=== PATIENT | female | born 1950 | race Caucasian/White ===

== ENCOUNTER 2023-06-23 09:32 | Outpatient (OUT) | payer MEDICARE, OTHER, SELFPAY ==
--- NOTE | 2023-06-23 | ECG_ITS ---
The [facility] Test Date: 2023-06-23 Pat Name: DELL PINEDA Department: Room: - Gender: Female Blocklayer: : 1950 Requested By: RUTH LOAZNO Order Number: [id number] Reading MD: CYN HOPKINS Measurements Intervals [place] Rate: 67 P: 62 IA: 166 QRS: 74 QRSD: 94 T: 48 QT: 396 QTc: 421 Interpretive Statements SINUS RHYTHM WITH FREQUENT VENTRICULAR PREMATURE COMPLEXES INCOMPLETE RIGHT BUNDLE BRANCH BLOCK [90+ ms QRS DURATION, TERMINAL R IN V1/V2, 40+ ms S IN I/aVL/V4/V5/V6] No previous ECG available for comparison Electronically Signed On 06-24-2023 7:02:20 EST by CYN HOPKINS
== END 2023-06-23 09:33 | disposition home or self-care (01) ==
LOC: CARD 09:37
PROVIDERS: PCP Family Medicine; Visit Provider Family Medicine
DX: I49.9 Cardiac arrhythmia, unspecified (principal)
CPT/HCPCS: 93005

== ENCOUNTER 2023-06-30 09:32 | Outpatient (OUT) | payer MEDICARE, OTHER, SELFPAY ==
[2023-06-30 09:54] LABS: Basophils Absolute Auto 0.1 10^3/uL (0.0-0.1); Eosinophils Absolute Auto 0.3 10^3/uL (0.0-0.7); Eosinophils Percent Auto 4.6 % (0.9-7.0); Hematocrit 37.8 % (36.0-48.0); Hemoglobin 12.4 g/dL (12.0-16.0); Immature Granulocytes Abs Auto 0.02 10^3/uL (0.00-0.03); Immature Granulocytes Pct Auto 0.3 % (0.0-0.5); Lymphocytes Absolute Auto 0.9 10^3/uL (1.2-3.8); Lymphocytes Percent Auto 14.7 % (20.5-60.0); Mean Corpuscular HGB Conc 32.8 g/dL (29.9-35.2); Mean Corpuscular Volume 88.3 fL (81.0-99.0); Mean Platelet Volume 10.9 fL (9.5-13.5); Monocytes Absolute Auto 0.6 10^3/uL (0.3-0.8); Monocytes Percent Auto 9.3 % (1.7-12.0); Neutrophils Absolute Auto 4.3 10^3/uL (1.4-6.5); Neutrophils Percent Auto 70.1 % (43.0-75.0); Platelet Count 238 10^3/uL (150-450); Red Blood Count 4.28 10^6/uL (4.20-5.40); Red Cell Distribution Width 13.7 % (11.0-15.0); White Blood Count 6.1 10^3/uL (4.0-11.0)
[2023-06-30 11:34] LABS: Anion Gap 10.6; BUN Creatinine Ratio 23.9; Carbon Dioxide 28.5 mmol/L (21.0-32.0); Chloride 101 mmol/L (98-107); Estimated GFR (African America >60 (>=60); Estimated GFR (Non-African Ame >60 (>=60); Glucose 92 mg/dL (74-106); Potassium 4.1 mmol/L (3.5-5.1); Sodium 136 mmol/L (136-145)
[2023-06-30 11:35] LABS: Alanine Aminotransferase 18 U/L (14-59); Albumin Level 3.7 g/dL (3.4-5.0); Alkaline Phosphatase 78 U/L (46-116); Aspartate Amino Transferase 12 U/L (15-37); Bilirubin Total 0.5 mg/dL (0.2-1.0); Chol HDL Ratio 2.9; Cholesterol 194 mg/dL (<=200); Globulin 3.6 g/dL; HDL Cholesterol 67 mg/dL (40-60); Thyroid Stimulating Hormone 1.321 uIU/mL (0.358-3.740); Total Protein 7.3 g/dL (6.4-8.2); Triglycerides 71 mg/dL (<=150); VLDL CHOLESTEROL 14.2 mg/dL
[2023-06-30 12:26] LABS: Free T4 1.32 ng/dL (0.76-1.46)
== END 2023-06-30 09:33 | disposition home or self-care (01) ==
LOC: LAB 09:34
PROVIDERS: PCP Family Medicine; Visit Provider Family Medicine
DX: E03.9 Hypothyroidism, unspecified (principal); I10 Essential (primary) hypertension
CPT/HCPCS: 36415; 80053; 80061; 84439; 84443; 85025

== ENCOUNTER 2024-11-05 12:26 | Outpatient (OUT) | payer MEDICARE, OTHER, SELFPAY ==
[2024-11-05 12:50] LABS: Basophils Absolute Auto 0.1 10^3/uL (0.0-0.1); Basophils Percent Auto 0.6 % (0.2-2.0); Eosinophils Percent Auto 0.2 % (0.9-7.0); Hematocrit 38.1 % (36.0-48.0); Hemoglobin 12.8 g/dL (12.0-16.0); Immature Granulocytes Abs Auto 0.02 10^3/uL (0.00-0.03); Immature Granulocytes Pct Auto 0.2 % (0.0-0.5); Lymphocytes Percent Auto 11.9 % (20.5-60.0); Mean Corpuscular HGB Conc 33.6 g/dL (29.9-35.2); Mean Corpuscular Hemoglobin 29.7 pg (26.7-34.0); Mean Corpuscular Volume 88.4 fL (81.0-99.0); Mean Platelet Volume 11.2 fL (9.5-13.5); Monocytes Absolute Auto 0.5 10^3/uL (0.3-0.8); Neutrophils Absolute Auto 6.6 10^3/uL (1.4-6.5); Neutrophils Percent Auto 81.1 % (43.0-75.0); Platelet Count 231 10^3/uL (150-450); Red Blood Count 4.31 10^6/uL (4.20-5.40); Red Cell Distribution Width 13.2 % (11.0-15.0); White Blood Count 8.1 10^3/uL (4.0-11.0)
--- NOTE | 2024-11-05 12:51 | ECG_ITS ---
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 Measurements Intervals [place] Rate: 82 P: 69 ND: 169 QRS: -8 QRSD: 97 T: 48 QT: 395 QTc: 462 Interpretive Statements SINUS RHYTHM WITH FREQUENT VENTRICULAR PREMATURE COMPLEXES IN A BIGEMINAL PATTERN INDETERMINATE AXIS INCOMPLETE RIGHT BUNDLE BRANCH BLOCK [90+ ms QRS DURATION, TERMINAL R IN V1/V2, 40+ ms S IN I/aVL/V4/V5/V6] ABNORMAL RHYTHM ECG Compared to ECG 06/23/2023 09:59:12 Indeterminate axis now present Electronically Signed On 11-05-2024 20:29:03 EDT by KAREEN CARDONA M.D.
[2024-11-05 13:15] LABS: Anion Gap 12.1; BUN Creatinine Ratio 18.6; Calcium 9.4 mg/dL (8.5-10.1); Carbon Dioxide 27.7 mmol/L (21.0-32.0); Chloride 102 mmol/L (98-107); Estimated GFR (African America >60 (>=60 mL/min/1.73m^2); Estimated GFR (Non-African Ame 56 (>=60 mL/min/1.73m^2); Glucose 105 mg/dL (74-106); Potassium 3.8 mmol/L (3.5-5.1); Sodium 138 mmol/L (136-145)
[2024-11-05 13:30] LABS: Thyroid Stimulating Hormone 3.475 uIU/mL (0.358-3.740)
[2024-11-05 14:06] LABS: Free T4 1.39 ng/dL (0.76-1.46)
== END 2024-11-05 12:27 | disposition home or self-care (01) ==
PROVIDERS: PCP Family Medicine; Visit Provider Family Medicine
DX: R00.1 Bradycardia, unspecified (principal); I10 Essential (primary) hypertension; E07.9 Disorder of thyroid, unspecified
CPT/HCPCS: 36415; 80048; 84439; 84443; 85025; 93005

== ENCOUNTER 2024-11-13 08:10 | Outpatient (OUT) | payer MEDICARE, OTHER, SELFPAY | END 2024-11-13 08:11 | disposition home or self-care (01) | LOC: CARD 08:13 | PROVIDERS: PCP Family Medicine; Visit Provider Family Medicine | DX: R00.1 Bradycardia, unspecified (principal) | CPT/HCPCS: 93242 ==

== ENCOUNTER 2025-03-18 08:21 | Outpatient (OUT) | payer MEDICARE, OTHER, SELFPAY ==
--- OUTSIDE RECORDS SUMMARY | 2025-03-18 08:37 | XMS_ITS | CCD ---
Author Organization [facility] Care Team Providers Care Director Dermatology Name Role Phone Carlos A Ordonez Attending Provider Elham Lozano Primary Care Provider Neno Ivett Unavailable DR ELHAM LOZANO Attending Unavailable BLAKE, DR ELHAM Mansfield Consulting Unavailable DR ELHAM LOZANO Primary Care Unavailable DR ELHAM LOZANO Admitting Unavailable Elham Lozano Unavailable MD Elham Lozano Primary Care Provider MD Elham Lozano Attending Provider ELHAM LOZANO Primary Care Physician [phone] MD Elham Lozano Primary Care Provider MD Elham Lozano Attending Provider Elham Lozano MD Primary Care Provider Americo Santiago MD Attending Provider Elham Lozano MD Primary Care Provider Americo Santiago MD Attending Provider Elham Lozano MD Primary Care Provider Juan Owusu MD Attending Provider ELHAM LOZANO Referring Unavailable ELHAM LOZANO Attending Unavailable ELHAM LOZANO Admitting Unavailable [place]. Attending Unavailable Elham Lozano Primary Care Unavailable Elham Lozano Referring Unavailable [place]. Admitting Unavailable Elham Lozano MD Primary Care Provider Elham Lozano MD Attending Provider [phone] Elham Lozano MD Referring Provider Juan Owusu MD Attending Provider [phone] Tann, Juan Admitting Unavailable Francoise, Juan Attending Unavailable Elham Lozano Primary Care Unavailable Americo Santiago II Attending Unavailinga e Americo Santiago II Admitting Unavailinga e Elham Lozano Primary Care Unavailable Tann, Juan Attending Unavailable Tann, Juan Admitting Unavailable Elham Lozano Primary Care Unavailable Tann, Juan Admitting Unavailable Francoise, Juan Attending Unavailable Elham Lozano Primary Care Unavailable Elham Lozano MD Primary Care Provider Unavailable Unavailable Unavailable Allergies Allergy Classification Reported Allergen(s) Allergy Type Date of Onset Reaction(s) Facility (20 sources) nickel; Translations: [Nickel] Drug Allergy 4 [facility] (3 sources) Latex; Translations: [Latex] Drug allergy [facility] (2 sources) patient allergy list reviewed by nurse or physicia Propensity to adverse reactions 6 Comment:Done Lola Pirindola [facility] Other (2 sources) Allergies Reconciled Propensity to adverse reactions Unknown Lola Pirindola [facility] Other (12 sources) metal Allergy to substance 1 [facility] Comment on above: rash over whole body Medications Current Medications Medication Drug Class(es) Dates Sig (Normalized) Sig (Original) Calcium (2 sources) Phosphate Binder, Calcium Calcium Active fluticasone propionate 0.5 mg/ml topical cream (9 sources) Corticosteroid Start: 11-08-2024 End: 03-11-2025 Fluticasone Propionate 0.05 % cream Active 1 APPLIC TOPICAL Daily as needed March 11, 2025 1:34pm FreeTextSi application Externally Once a day; Note: Source Status: Taking; Refills: 1; Qty: 30 Gram; Provider: Blake Mansfield Complies with drug therapy Fluticasone Prop ionate 0.05 % 1 application Externally Once a day for 14 days Active Fluticasone Prop ionate 0.05 % 1 application Externally Once a day for 14 days Active folic acid 0.8 mg oral tablet (20 sources) Start: 10-16-2020 take 0.8 mg by mouth once daily in the evening Folic Acid 800 mcg Tablet Active 0.8 MG PO Every evening October 16, 2020 12:00am Complies with drug therapy Start: 10-16-2020 take 0.8 mg by mouth once daily in the evening Folic Acid Active 0.8 MG PO Every evening October 16, 2020 12:00am take 1 tablet by adilson th every twenty-four hours Folic Acid 800 MCG 1 tablet Orally Once a day Not-Taking/PRN 24 hr metoprolol succinate 25 mg extended release oral tablet (1 source) beta-Adrenergic Jamilah Start: 03-11-2025 take 2 tablets by mouth once daily at bedtime Metoprolol Succinate 25 mg tablet extended release 24 hr Active 12.5 MG PO Daily at bedtime March 11, 2025 12:00am Complies with drug therapy spironolactone 25 mg oral tablet (1 source) Aldosterone Antagonist Start: 03-11-2025 take 1 tablet by mouth once daily in the morning Spironolactone 25 mg tablet Active 25 MG PO Every morning March 11, 2025 12:00am Complies with drug therapy Vitamin D3-Vitamin K2 (Dosoquin) 5,500-200 unit-mcg tablet (17 sources) Start: 10-16-2020 take 1 tablet by mouth once daily Vitamin D3-Vitamin K2 (Dosoquin) 5,500-200 unit-mcg tablet Active 1 TAB PO Daily October 16, 2020 11:01am Start: 10-16-2020 End: 03-11-2025 take 1 tablet by mouth once daily Vitamin D3-Vitamin K2 (Dosoquin) 5,500-200 unit-mcg tablet Discontinued 1 TAB PO Daily October 16, 2020 12:00am March 11, 2025 1:34pm Start: 10-16-2020 take 1 tablet by adilson th once daily Start: 10-16-2020 take 1 tablet by adilson th once daily Vitamin D3-Vitamin K2 (Dosoquin) 5,500-200 unit-mcg tablet Active 1 TAB PO Daily October 15, 2020 11:00pm Start: 10-16-2020 take 1 tablet by adilson th once daily Vitamin D3-Vitamin K2 (Dosoquin) 5,500-200 unit-mcg tablet Active 1 TAB PO Daily October 16, 2020 12:00am Completed/Discontinued Medications Medication Drug Class(es) Dates Sig (Normalized) Sig (Original) acetaminophen 325 mg / oxyCODONE hydrochloride 5 mg oral tablet (13 sources) Opioid Agonist Start: 11-18-2020 End: 10-27-2023 take 1 tablet by mouth every four to six hours as needed for pain Oxycodone-Acetamin ophen (Percocet) 5-325 mg tablet Discontinued 1 - 2 TAB PO EVERY 4-6 HOURS as needed for pain 40 7 November 18, 2020 October 27, 2023 9:57am amoxicillin 500 mg oral tablet (17 sources) Penicillin-class Antibacterial Start: 03-16-2024 End: 09-20-2024 take 1 tablet by mouth three times daily Amoxicillin 500 mg tablet Discontinued 500 MG PO Three times daily March 16, 2024 12:00am September 20, 2024 3:01pm Start: 02-11-2021 Amoxicillin 50 0 MG take 4 capsule by mouth post dental work Orally Jan, Not-Taking/PRN Start: 02-11-2021 amoxicillin 500 mg / clavulanate 125 mg oral tablet (5 sources) Penicillin-class Antibacterial Start: 12-10-2024 End: 12-24-2024 take 1 tablet by mouth twice daily Amoxicillin-Pot Clavulanate 500-125 mg tablet Discontinued 1 TAB PO Twice daily December 10, 2024 12:00am December 24, 2024 2:57pm aspirin 81 mg delayed release oral tablet (13 sources) Platelet Aggregation Inhibitor, Nonsteroidal Anti-inflammatory Drug Start: 11-18-2020 End: 10-27-2023 take 1 tablet by mouth twice daily Aspirin 81 mg Tablet,Delayed Release (Dr/Ec) Discontinued 81 MG PO Twice daily 0 November 18, 2020 12:00am October 27, 2023 9:57am docusate sodium 100 mg oral capsule (13 sources) Start: 11-18-2020 End: 10-27-2023 take 1 capsule by mouth twice daily Docusate Sodium (Dok) 100 mg Capsule Discontinued 100 MG PO Twice daily 0 November 18, 2020 12:00am October 27, 2023 9:57am Dosoquin 5500-200 UNIT-MCG (7 sources) Dosoquin 5500-20 0 UNIT-MCG as directed Orally Not-Taking/PRN Dosoquin 5500-20 0 UNIT-MCG as directed Orally Not-Taking hydroCHLOROthiazide 25 mg oral tablet (20 sources) Thiazide Diuretic Start: 08-04-2015 End: 03-11-2025 take 1 tablet by mouth once daily in the evening Hydrochlorothiazide 25 mg tablet Discontinued 25 MG PO Every evening October 16, 2020 12:00am July 03, 2024 3:27pm hydrOXYzine pamoate 25 mg oral capsule (13 sources) Antihistamine Start: 11-18-2020 End: 11-12-2024 Hydroxyzine Pamoate (Vistaril) 25 mg capsule Discontinued 25 MG PO every 6 to 8 hours as needed for spasms November 18, 2020 12:00am November 12, 2024 11:01am levothyroxine sodium 0.088 mg oral tablet (20 sources) l-Thyroxine Start: 08-07-2024 End: 11-07-2024 take 1 tablet by mouth once daily in the morning Levothyroxine 88 mcg tablet Discontinued 0 .ROUTE .COMPLEX August 07, 2024 3:33pm November 07, 2024 8:24am TAKE 1 TABLET BY MOUTH ONCE DAILY IN THE MORNING ON AN EMPTY STOMACH Start: 08-07-2024 take 1 tablet by adilson th once daily in the morning Levothyroxine 88 mcg tablet Active 0 .ROUTE .COMPLEX August 07, 2024 3:33pm TAKE 1 TABLET BY MOUTH ONCE DAILY IN THE MORNING ON AN EMPTY STOMACH Start: 08-07-2024 take 1 tablet by adilson th once daily in the morning Levothyroxine 88 mcg tablet Active 0 .ROUTE .COMPLEX August 07, 2024 2:33pm TAKE 1 TABLET BY MOUTH ONCE DAILY IN THE MORNING ON AN EMPTY STOMACH Start: 02-06-2024 End: 11-07-2024 take 1 tablet by mouth once daily in the morning Levothyroxine 88 mcg tablet Discontinued 0 .ROUTE .COMPLEX August 07, 2024 3:33pm November 07, 2024 8:24am TAKE 1 TABLET BY MOUTH ONCE DAILY IN THE MORNING ON AN EMPTY STOMACH Start: 02-18-2023 take 1 tablet by adilson th once daily in the morning Levothyroxine Sodium 88 MCG 1 tablet in the morning on an empty stomach Orally Once a day for 90 days Jan, Active Start: 10-16-2020 End: 02-06-2024 take 1 tablet by mouth once daily in the morning Levothyroxine 88 mcg tablet Discontinued 88 MCG PO Every morning October 16, 2020 12:00am February 06, 2024 9:13am Start: 08-04-2015 take 1 tablet by adilson th once daily levothyroxine 75 mcg (0.075 mg) Tab 75 microgram = 1 tab(s), Oral, Daily, # 60 tab(s), Refills(s) 0, Thyroid Start Date: 08/04/15 Status: Ordered take 1 tablet by adilson th once daily in the morning Levothroid 88 MCG 1 tablet on an empty stomach in the morning Orally Once a day Active lisinopril 40 mg oral tablet (20 sources) Angiotensin Converting Enzyme Inhibitor Start: 02-06-2024 End: 11-12-2024 take 1 tablet by mouth once daily Lisinopril 40 mg tablet Discontinued 0 .ROUTE .COMPLEX November 07, 2024 9:33am November 12, 2024 2:08pm Take 1 tablet by mouth once daily Start: 02-06-2024 take 1 tablet by adilson th once daily Lisinopril Active 0 .ROUTE .COMPLEX February 06, 2024 9:13am Take 1 tablet by mouth once daily Start: 08-04-2015 End: 02-06-2024 take 1 tablet by mouth once daily in the evening Lisinopril 40 mg tablet Discontinued 40 MG PO Every evening October 16, 2020 12:00am February 06, 2024 9:13am meloxicam 15 mg oral tablet (9 sources) Nonsteroidal Anti-inflammatory Drug Start: 09-20-2024 End: 11-12-2024 take 1 tablet by mouth once daily Meloxicam 15 mg tablet Discontinued 15 MG PO daily September 20, 2024 1:00am November 12, 2024 11:01am methylPREDNISolone 4 mg oral tablet (10 sources) Corticosteroid Start: 03-16-2024 End: 09-20-2024 Methylprednisolone 4 mg tablets,dose pack Discontinued 0 PO per package directions March 16, 2024 12:00am September 20, 2024 3:01pm PO PER PKG DIR for 6 days Start: 03-16-2024 Methylpredniso lone Active 0 PO per package directions March 16, 2024 12:00am PO PER PKG DIR for 6 days omeprazole 40 mg delayed release oral capsule (13 sources) Proton Pump Inhibitor Start: 11-08-2024 End: 11-12-2024 take 1 capsule by mouth once daily Omeprazole 40 mg capsule,delayed release(DR/EC) Discontinued 1 CAP PO Daily November 08, 2024 12:00am November 12, 2024 11:01am FreeTextSi capsule 30 minutes before morning meal Orally Once a day; Note: Source Status: Taking; Provider: Blake Lizarraga ( ) take 1 capsule by mouth once juanjo ly Omeprazole 40 MG 1 capsule 30 minutes before morning meal Orally Once a day Active Triamcinolone (18 sources) Corticosteroid Start: 06-05-2020 Kenalog -40 mg May, 40 mg Start: 02-29-2020 Kenalog -40 mg Feb, 40 mg Problems Active Problems Problem Classification Problem Date Documented Date Episodic/Chronic Allergic reactions (6 sources) Contact dermatitis; Translations: [Unspecified contact dermatitis, unspecified cause] Onset: 06-11-2015 Episodic Cardiac dysrhythmias (7 sources) Cardiac arrhythmia; Translations: [Cardiac arrhythmia, unspecified] Onset: 09-27-2018 Chronic Cardiac dysrhythmias (20 sources) Bradycardia; Translations: [Bradycardia, unspecified] Onset: 02-18-2025 11-05-2024 Episodic Esophageal disorders (2 sources) Gastroesophageal reflux disease without esophagitis; Translations: [Gastro-esophageal reflux disease without esophagitis] Chronic Essential hypertension (19 sources) Essential (primary) hypertension; Translations: [Essential hypertension] Onset: 03-11-2022 11-05-2024 Chronic Genitourinary symptoms and ill-defined conditions (2 sources) Dysuria; Translations: [Dysuria] Episodic Immunizations and screening for infectious disease (13 sources) Vaccination given; Translations: [Encounter for immunization] 07-10-2024 Episodic Joint disorders and dislocations; trauma-related (7 sources) Crepitus of right knee joint; Translations: [Other internal derangements of right knee] Chronic Nutritional deficiencies (2 sources) Vitamin D deficiency; Translations: [Vitamin D deficiency, unspecified] Onset: 02-20-2018 Chronic Osteoarthritis (20 sources) Osteoarthritis of left knee joint; Translations: [Unilateral primary osteoarthritis, left knee] Onset: 11-10-2015 Resolved: 05-26-2021 Chronic Other bone disease and musculoskeletal deformities (2 sources) Bone density finding; Translations: [Other specified disorders of bone density and structure, unspecified site] Episodic Other circulatory disease (2 sources) Elevated blood-pressure reading without diagnosis of hypertension; Translations: [Elevated blood-pressure reading, without diagnosis of hypertension] Episodic Other connective tissue disease (7 sources) History of right total knee replacement; Translations: [Presence of right artificial knee joint] Chronic Other connective tissue disease (1 source) Presence of right artificial knee joint Onset: 05-26-2021 Resolved: 05-26-2021 Chronic Other connective tissue disease (13 sources) History of total knee arthroplasty; Translations: [Presence of right artificial knee joint] 11-18-2020 Chronic Other infections; including parasitic (12 sources) History of human papilloma virus infection; Translations: [Personal history of other infectious and parasitic diseases] 10-27-2023 Episodic Other infections; including parasitic (2 sources) Personal history of other infectious and parasitic diseases; Translations: [Personal history of other infectious and parasitic diseases] 10-27-2023 Episodic Other injuries and conditions due to external causes (2 sources) History of fall; Translations: [History of falling] Episodic Other lower respiratory disease (8 sources) Dyspnea; Translations: [Dyspnea, unspecified] 12-24-2024 Episodic Other lower respiratory disease (3 sources) Dyspnea, unspecified; Translations: [Other respiratory abnormalities] Onset: 03-04-2025 12-24-2024 Episodic Other non-traumatic joint disorders (2 sources) Arthralgia of the lower leg; Translations: [Pain in right knee] Episodic Other non-traumatic joint disorders (2 sources) Arthralgia of the ankle and/or foot; Translations: [Pain in right ankle and joints of right foot] Episodic Other nutritional; endocrine; and metabolic disorders (2 sources) Body mass index 25-29 - overweight; Translations: [Body mass index (BMI) 27.0-27.9, adult] Episodic Other screening for suspected conditions (not mental disorders or infectious disease) (16 sources) Encounter for screening for malignant neoplasm of cervix; Translations: [Encounter for screening mammogram for malignant neoplasm of breast] Episodic Other skin disorders (6 sources) Localized swelling of right foot; Translations: [Localized swelling, mass and lump, right lower limb] 11-09-2024 Episodic Other skin disorders (6 sources) Localized swelling, mass and lump, right lower limb; Translations: [Swelling of limb] 11-05-2024 Episodic Other upper respiratory disease (7 sources) Allergic rhinitis; Translations: [Allergic rhinitis, unspecified] 12-11-2024 Chronic Other upper respiratory disease (2 sources) Allergic rhinitis, unspecified; Translations: [Allergic rhinitis, cause unspecified] 12-10-2024 Chronic Other upper respiratory infections (20 sources) Acute maxillary sinusitis; Translations: [Acute recurrent maxillary sinusitis] Onset: 09-27-2018 03-29-2024 Episodic Residual codes; unclassified (2 sources) Family history of malignant neoplasm of gastrointestinal tract; Translations: [Family history of malignant neoplasm of digestive organs] Episodic Residual codes; unclassified (2 sources) Immunization refused ; Translations: [Immunization not carried out because of patient refusal] Episodic Residual codes; unclassified (12 sources) Menopause present; Translations: [Asymptomatic menopausal state] 10-27-2023 Episodic Residual codes; unclassified (2 sources) Asymptomatic menopausal state; Translations: [Symptomatic menopausal or female climacteric states] 10-27-2023 Episodic Residual codes; unclassified (11 sources) Family history of cancer of colon; Translations: [Family history of malignant neoplasm of digestive organs] 10-27-2023 Episodic Residual codes; unclassified (1 source) Family history of malignant neoplasm of digestive organs; Translations: [Family history of malignant neoplasm of gastrointestinal tract] 10-27-2023 Episodic Thyroid disorders (6 sources) Hypothyroidism, unspecified; Translations: [Hypothyroidism] Onset: 03-10-2022 Chronic Thyroid disorders (11 sources) Disorder of thyroid gland; Translations: [Disorder of thyroid, unspecified] 11-05-2024 Episodic Varicose veins of lower extremity (10 sources) Asymptomatic varicose veins of right lower extremity; Translations: [Varicose veins of right ankle] Onset: 11-14-2024 11-12-2024 Episodic Past or Other Problems Problem Classification Problem Date Documented Da te Episodic/Chronic Other non-traumatic joint disorders (10 sources) Pain in left knee; Translations: [Left knee pain] Onset: 09-20-2024 09-18-2024 Episodic Results Test Name Value Interpretation Reference Range Facility STR cardiac stress/regularon 03-05-2025 STR cardiac stress/regular [address] [place] [address] Cardiac Stress Test Signed Patient: Parisa Hendricks MR#: [id number] : 1950 Acct:[id number] Age/Sex: 74 / F ADM Date: 03/04/25 Loc: EL Room: Type: [facility] CLI Attending Dr: Juan Owusu MD Copies to: Jolly Moise MD, [facility] Juan Owusu MD Ordering Provider: Juan Owusu MD Date of Service: 03/04/25 STR/STR cardiac stress/regular: R06.00 - Dyspnea, unspecified ORDERED BY: Dr. Owusu INDICATION: A 74-year-old patient with dyspnea on exertion. RESTING ECG: Resting ECG revealed normal sinus rhythm with a heart rate of 74 beats/min. Resting blood pressure 126/72 mmHg. EXERCISE DATA: The patient was exercised on a Gordy protocol for 5 minutes and 32 seconds achieving maximum heart rate 155 beats/min, which represented 105% of predicted maximum heart rate and a workload of 7 METs. The test ended due to leg fatigue. During exercise, no ischemic EKG changes were noted. The patient had no symptoms of chest pain and no significant cardiac arrhythmias were noted. CONCLUSION: 1. Normal graded exercise tolerance test after completing 5 minutes and 32 seconds on a Gordy protocol achieving 105% of predicted maximum heart rate and a workload of 7 METs. 2. No chest pain, significant cardiac arrhythmias or ischemic ST-segment abnormalities induced by exercise. 3. The patient achieved Sheets treadmill score of 6+, which is somewhat favorable. Transcribed By: SUZIE 03/05/252131 Dictated By: Jolly Moise MD, [facility] 03/05/25 0742 Signed By: 03/11/25 0848 Normal [facility] CT heart calcium score wo 02-18-2025 CT heart calcium score [facility] [address] [address] [address] Scan Report Signed Patient: Parisa Hendricks MR#: [id number] : 1950 Acct:[id number] Age/Sex: 74 / F ADM Date: 02/18/25 Loc: CT Room: Type: [facility] CLI Attending Dr: Juan Owusu MD Copies to: Juan Owusu MD Ordering Provider: Juan Owusu MD Date of Service: 02/18/25 CT/CT heart calcium score wo: R06.00 - Dyspnea, unspecified CT heart calcium score w/o contrast REASON FOR EXAM: Palpitations, bradycardia, history of thyroid cancer and melanoma, hypertension TECHNIQUE: Prospective gated imaging of the heart were obtained for calcium evaluation of the coronary arteries. Agatston score was calculated. The CT exam was performed using one or more the following dose reduction techniques: Automated exposure control, adjustment of the MA and/or Kv according to patient size, or use of the iterative reconstruction technique. COMPARISON:None FINDINGS: LEFT MAIN: 0 LEFT ANTERIOR DESCENDIN CIRCUMFLEX: 0 RIGHT CORONARY ARTERY: 0 TOTAL AGATSTON CALCIUM SCORE: 0 This calcium score places the patient at the 0th percentile. EXTRACARDIAC STRUCTURES: Mediastinal and hilar partially calcified lymph nodes are present. No pericardial effusion. Visualized lungs demonstrate no acute process. There is a 5 mm calcified granuloma in the lingula. Limited images of the upper abdomen demonstrate no acute findings. There is a 1.5 cm hypoattenuating structure in the right hepatic lobe presumably representing a cyst. Calcified granulomas are noted in the spleen. CT/CT heart calcium score wo IMPRESSION: No significant extracardiac CT findings. CALCIUM SCORE INTERPRETATION (0) No identifiable atherosclerotic plaque. Very low cardiovascular disease risk. Less then 5% chance of presence of coronary artery disease. (1-99) RIsk is mildly increased. Treatment recommendation - moderate intensity statin. (100-299) Risk is moderately increased. Treatment recommendation - moderate to high intensity statin plus ASA 81mg. (>300) Risk is moderately to severely increased. Treatment recommendation - high intensity statin plus ASA 81mg. Source: September 2017 - Coronary artery calcium data and reporting system. An expert consensus document of the Society of Cardiovascular Computed Tomography) CALCIUM SCORING OVERVIEW: Coronary calcium is a marker for plaque in a blood vessel or atherosclerosis (hardening of the arteries). The presence and amount of calcium detected in the coronary artery by the CT scan es timates the presence and amount of atherosclerotic plaque. These calcium deposits can appear years before the development of heart disease symptoms such as chest pain and shortness of breath. A calcium score is computed of each of the coronary arteries based upon the volume and density of the calcium deposits. This can be referred to as your calcified plaque burden. It does not correspond directly to the percentage of narrowing in the artery, but does correlate with the severity of the overall coronary atherosclerotic burden. This score is then used to determine the calcium percentile which compares your calcified plaque to that of other asymptomatic men and women of the same age. The calcium score, in combination with the percentile, enables your physician to determine your risk of developing symptomatic coronary artery disease, and to measure the progression of disease as well as the effectiveness of treatment. A score of zero indicates that there is no calcified plaque burden. This implies that there is no significant coronary artery narrowing and very low likelihood of a cardiac event over at least the next 3 years. It does not absolutely rule out the presence of soft, noncalcified plaque or totally eliminate the possibility of a cardiac event. A score greater than zero indicates at least some coronary artery disease. As the score increases, so does the likelihood of a significant coronary narrowing and the likelihood of a coronary event over the next 3 years. Similarly, the likelihood of a coronary event increases with increasing calcium percentiles. Impression dictated by: Jef Duncan M.D. 02/18/2025 3:51 PM Dictation Location: [place] [address] Transcribed By: [facility] 02/18/25 1551 Dictated By: Jef Duncan II, MD 02/18/25 1542 Signed By: 02/18/25 1551 Normal [facility] E[facility] echo transthoracicon ECH echo transthoracic [facility] [place] [address] Echocardiogram Signed Patient: Parisa Hendricks MR#: [id number] : 1950 Acct:[id number] Age/Sex: 74 / F ADM Date: 02/18/25 Loc: [place] Room: Type: [facility] Attending Dr: Juan Owusu MD Ordering Provider: Juan Owusu MD Date of Service: 02/18/25 ECH/ECH echo transthoracic: R06.00 - Dyspnea, unspecified Copies to: MD Juan Restrepo MD BSA: 1.7 m2 BP: 150/88 mmHg HR: 73 Reason For Study: R06.00 - Dyspnea, unspecified History: bradycardia, HTN, family history of CAD Interpretation Summary Ejection Fraction = 55-60%. The left ventricular size and thickness are normal. No regional wall motion abnormalities noted. A variety of Doppler measurements indicate impaired left ventricular relaxation, which is associated with grade I/IV or mild diastolic dysfunction. There is trace tricuspid regurgitation. Trace aortic regurgitation. There is trace mitral regurgitation. There is no comparison study available. Procedure/Quality: A two-dimensional transthoracic echocardiogram with color flow and Doppler was performed. The study was technically good in quality. Left Ventricle: The left ventricular size and thickness are normal. Ejection Fraction = 55-60%. A variety of Doppler measurements indicate impaired left ventricular relaxation, which is associated with grade I/IV or mild diastolic dysfunction. No regional wall motion abnormalities noted. Left Atrium: The left atrium appears normal in size. Right Atrium: The right atrium appears normal in size. Right Ventricle: The right ventricle is normal in size and function. Aortic Valve: The aortic valve is mildly sclerotic. No hemodynamically significant valvular aortic stenosis. Trace aortic regurgitation. Mitral Valve: The mitral valve is normal in structure. No significant mitral valve stenosis. There is trace mitral regurgitation. Tricuspid Valve: The tricuspid valve is normal in structure. There is trace tricuspid regurgitation. Pulmonic Valve: The pulmonic valve is not well visualized. No significant pulmonic regurgitation. Arteries: The aortic root is normal size. Pericardium/Pleura: No pericardial effusion seen. IVC/Hepatic Veins: The inferior vena cava is normal in size, with a normal collapsibility index. Measurements with Normals IVSd: 0.75 cm (0.7-1.1 cm)LVIDd: 5.0 cm (3.7-5.4 cm) LVPWd: 0.81 cm (0.7-1.1 cm)LVIDs: 3.6 cm (2.3-3.6 cm) LA dimension: 4.1 cm (2.3-4.0 cm)Ao root diam: 3.0 cm(2.0-3.6 cm) asc Aorta Diam: 3.1 cm(2.1-3.4cm) Doppler with Normals RVSP(TR): 34.5 mmHg (18-35mmHg) LV V1 max: 109.6 cm/sec (0.7-1.7m/s)MV E max claus: 75.2 cm/sec(0.8-1.3m/s) MV A max claus: 99.9 cm/sec(0.0-0.0m/s) MV E/A: 0.75 (<1.5) MMode/2D Measurements Calculations RVDd: 3.3 cm FS: 28.2 % Ao root area: LVOT diam: 1.9 cm TAPSE: 2.9 cm EDV(Teich): 7.2 cm2 LVOT area: 2.8 cm2 RV S Claus: 120.1 ml 12.1 cm/sec ESV(Teich): 55.0 ml EF(Teich): 54.2 % __ LVLd ap4: 7.2 cm SV(MOD-sp4): LAV(MOD-sp4): LA A2 area: 19.2 cm2 EDV(MOD-sp4): 43.2 ml 49.5 ml 75.0 ml LAV(MOD-sp2): LA A4 area: 19.1 cm2 LVLs ap4: 5.9 cm 48.6 ml LA length (vol): ESV(MOD-sp4): 5.7 cm 31.8 ml LA vol: 54.8 ml EF(MOD-sp4): 57.6 % LA vol index: 32.2 ml/m2 Doppler Measurements Calculations MV dec time: MV V2 max: E/E' lat: 6.6 MV dec slope: 0.22 sec 98.5 cm/sec E/E' med: 9.0 MV max P.9 mmHg 334.9 cm/sec2 MV V2 mean: 57.7 cm/sec MV mean P.5 mmHg MV V2 VTI: 21.6 cm MVA(VTI): 3.4 cm2 __ Ao V2 max: AI max claus: LV V1 max PG: TV max P.0 mmHg 177.2 cm/sec 435.2 cm/sec 4.8 mmHg Ao max PG: AI max P.0 mmHg LV V1 mean P.6 mmHg AI dec slope: 2.5 mmHg Ao mean PG: LV V1 mean: 6.2 mmHg 305.3 cm/sec2 75.9 cm/sec Ao V2 mean: AI P1/2t: 417.4 msec LV V1 VTI: 118.0 cm/sec 26.3 cm Ao V2 VTI: 43.6 cm EMMETT(I,D): 1.7 cm2 EMMETT(V,D): 1.7 cm2 __ TR max claus: 271.5 cm/sec TR max P.5 mmHg RAP systole: 5.0 mmHg Transcribed By: SCV Performed At: 02/18/25 0904 Signed By: Lou Huang MD 02/18/25 1710 [facility] Coding Summaryon 01-09-2025 Coding Summary HTMLBase 64 GjjvblmyFWu1pYe+PGhlY WQ+KT3EUAHvK98aqLQbtF 1sE3VVDMdLRujiOMMBDSn WHmVhmnAjIT9fqVMsAVAt IC8+FN7lFEBbBquxgDPyk 6F9rJV2U72vgw0kWHepiV Y1MVIjKwUsakafg0ijlBc 6IDcuNmluOyBt XSPvsN37QIE5nG21Cy97r IUfhONga4pkyMz3ArNyAV MbOVM7zNmiVZavp1TqTHL qB64ymWLry0H5 UZOuqHmlzTNvFvFesZM1d U1eNOolymqyk7ocdjydZq l2dx08eHSuv3M6kXL7X6D sniU8IFVwsMGs LymfxQGUiF2kdtxir4drf ofrGuZnZZSzPHi7SHd2LV LnuCvcJmPeDM72YKN2OVK hxgYoW1MrPRPn jZcmYrN2o9F1Gw9ZK4LDL sawL0IBBUDUBUmqkCD+PC 57nr35V3CtRsgfQpf1QPQ iAST9tFG4bC6t CILdBTuvj4C1jNC0I9Ttj iModv0ff6nuNEWaXQdcI2 8mlYQcz6T3BBZykMI7SFI omUtaYbNmbX63 Oyc+LPQpnJzps6ZhNgsxi 4jbj5pjsZa3SqmbYHYhkl OzkClqZGB6d9FhBb9jMRR qoKR4uTT6oD7u MjVjRlJ3PApjQ105AcOtm MClQtfdT06eT5PklMF+PH XnDuf7YNRrfWxoYF0rZ3W hZGRpbmctbGVm iEpgFV0sTRZwhotrKOOmv D5oDCBoQ0v0WnUvSqW5FT vjP8VmDEQfjgtyAh85nO6 mSpKxKvW5ISca F2EwrgB4LDXtwXXhDFhvW RM5G08jr6F1SFKcTNYwGO K2rJT5jS0trArjzayxuHV mdDsgdmVydGlj HZfvHFhyN416THVyyAjcB kNvZGluZyBEYXRlOiAgMD YvMTgvMjAyNTwvdGQ+PHR pZAD3lXszTONy yDCjLOpsNz5mmDyqhYoiC U8vODUsyaflBYDooL2zKE SbkJMeePcqZO9dZGDrkpb jk315BcVsDQZ7 LZLgzWNeR4AjcL4dUrJiC KAkUVVnV3OztDFyJEjqX4 57BTvbWnA3XTZwslTrV1Q sLWFsaWduOiB0 m5C1Qu2Qp2CdsovvS7Sxr DXsKaLrTpclSCq6Y9ZzRj wvdHI+DP49TBHrIO12AVl 2FZK5aKfcEDfa CWBbY7IvgY0gPmYlEMGlD GRkOyc+PHRhYmxlIHdpZH RoPScxMDAlJyBzdHlsZT0 nFa3oZHAbPXSi sDutrDVzJhReb3fwIMIyJ VicEY8nzPmrP0LxqZU7ZZ Fpe2m5Fy27J49pE9BeuGX +YGIunZR5jLF7 tY9rEaXlTnQ2UNqvP239F vKbhAWdNcptf4jiu5unbD l1RwC4FTUlrdNyxPwuKQO 3i3MsJo68O46w IHdpZHRoPSIxNSUiIHZhb Uynuy4crC8wZf6+PGNvbC R8iGG4xM2rRcAkJcP1ZKq pV655QrApsBGo Qoelu4sar1fioGa1AqLfE OLgxiNzkCwhTJT7z3QpUt 48J1SbkPclj6YlCja9hi8 1nEDnj1E7fVM5 G1VuINMxmneneOMobWpnG A2sNLWlxhtoNPHrqW3lFJ EuI7a3TpXhBxZ1ZFfmL7P gvuR9FNDitNRa BAZwhPUEnH8olrefs0gtp xjqKnPzBVOkPJv3JMn7TF QatDsmXtRcJLD6CkC4URX 7wKWexT9itJim yvszuP4kMrh+TNS7vFNlr IHTSQ8zCmtuxJE+PHRkIH D0jHslTEijLSEncS1wGUT jX4k4VhOwBtS0 EQixH5JwkvR7ARQhiTAgZ ESdpUFTbY1jhmwwg0oocx jzCbLdOJLbGQv3DKd6FST saWduOiBsZWZ0 ZpX2BIQ0pFUqfW3rqBxjw qbjdB2eEev+QmlydGggRG I0VDn5H4GiSyo5TPLlnVr yCZ8zhKZkMXiz Km4fdEsscGdgUR4zJLJgl bmhx720IvTga1rwFQPlwV IcBHieLFP5W56oy0I7WWT lYDYpPXS7gCR4 dY6zvQjaycanpJEksBanf sVnmDhyCVtmMFliT599YW OtaPnlScQdPAu6G3TaXwo 5FSPmzAdjUW0n zJQhOZjqXh4lvVxtbDwnP D5nRLDmttbcg613LgToj2 hoVKQbxDQzGTmmXSD4Y23 po6B9EAKgIYAe AEK4lYY6bZ3dxHhwvansu GVmdDsgdmVydGljYWwtYW jcZ795XPHsjUmfDbPgxYs 4P8JcMlx5NNDu gDsqGW2npCUoXFpvTs4nm YrrrNyaVN0gSENdbknje9 05ArBjd0cxVZMsoVMcZRj iJVO7S14kz4M5 XPLoJPJjHSX0sMG4mI7fo GlnbjogbGVmdDsgdmVydG vcMHpmVWzbL729XPOxxVj nPlBhdGllbnQg JFwoVSq2I2VaVdnphOU+P O00QMMsDS69aAIsiXHdj7 bglSe2QhGrVMRyYFB9vWq oHEbth9DhTTCp L30muTQqp8M2DQOblXftm LBuHlEeeYL5gF7jWExilv qju6bmcatfNqweh8rckj6 7aJ19Y19oYTcw ZHRoPSIzMCUiIHZhbGlnb s4geE5oPd9+GXLhvEA6mO O0vC9bBMDjZiP0XTbmL68 9InRvcCIvPjxj q9mwi9bztQm2HnZ9KYFdw jFzfFaaBFU2z1TaHi33H8 9sIHdpZHRoPSIyMCUiIHZ moJlkuq9rpG4q Ii8+BYBboCG7dLC2lR2zF tVdGvI6EErmR627DvKnjG WvGxprT67qP9JauSX+PHR xWah6VJHabDnd WF3pnVNoDDnaLy0cSHU4Y eSbJeErZXiaW9QiOTCwpp wdqkxtxFF0TQHrZVMnaS2 9Bt8brOsoDOOe kXAEsQ5qztmno6ddxmgjB uKxTGGqKQo9LYn4XPQsdV jnUoUzNAK1IyF2RMR8gAI pzR3ecIqdyvbk zG1vE2HjTNFepwadYm76v N6cAwIcJrF9GRgjBbg+V0 lMTElBTVMsIFNIQVJPTjw vdGQ+PHRkIHN0 qDtyYEcvZPFnfC7eNALgH 6m9RhRxQzL3SDxdG2PlKP ZubjzlSz85fE9oCxCaBeK 3OXpmL6TgfkS4 EFIclHZdOFggUAM3J08sw 6S4XYBtFIGqDNW6hTE9hO 1hbGlnbjogbGVmdDsgdmV ydGljYWwtYWxp U359QSHvfAiaVqXrRwJ4A hD6TBJ6H3OgReh2WFZpmZ daCV6paYDlYRagPh1hoCh odYakAV8tYKUq mtvkPLOkxJ5uUSKqxTHix GbxIW9vSJYyewagb876Rt XpXBC9ZXPpjSWbI4LtnY8 yOiAjMDAwMDAw L6OwuMXrZYkvY300BJvnL zX2UNTpheRpS8NmJFMenA qvNlW4u5K9Bt98XiXVBYS yczwvdGQ+PHRk YAD0lGkeDKypETBprV7tE DOtF7f6QhXnDyO1EOvvW5 OiYZUwbtjhAk12wP3qXkH wTjG0OVpoS0Xs kiV8XFBqbIHwJHndGLK7C 19fh9D6ILAyNRJrPXN6mD B8uM7apAerkxbeoRCgeGk gdmVydGljYWwt ZFoeR829AAIxrKjtRuTKZ UFMRTwvdGQ+XAKfMGT6cH clVPjgMJYcnT6aAENrA6g 8DeDdNbR6BWmw N1DoUCHbhtneWd63aJ4hI wZnGvN0IQuhQ1DkhmP4VA MvoUAxKNzpIYC7Y93uc0S 5SCJeUITnQBR1 cTP9wT8grKdhnuzhzBTak DsgdmVydGljYWwtYWxpZ2 51JELmhQqdKg6XNF91YX0 2E0BhBtrayJUy bGU+PHRhYmxlIHdpZHRoP LdlQOZwNvRvuZrtYU2kUn 9yZGVyLWNvbGxhcHNlOiB ga0riVNMdVXby XZ3xcTmjT3UswIQ3PPTaq 0i1Cf78X99dA6WaqDA+PG XkvAF5qBE0fH1dUoPpZeG 8KLxsK631BjUr kXNvZuujo2yyz1aubDa2D fEvTKIcsnKywSnmEUY3x2 BqFx01Z01yTTpgSXBwJPD yMCUiIHZhbGln vx5cvM2lDx1+RFGydTI2w GF4lY4tIqJxAmO6VCooL0 29OwZmhHYqVwllU91rC4I vdXA+PHRyPjx0 NMRbeYcsCR1brHTaTCosJ d5lXUI6PuBbDsGxCWzgO6 SjPYPxfxvzymwqbHQ2EYQ vVFNueA19Iw4j kQudCv4rUSQtWIA6TFJov RDmH8UyoX2zSePpSYVxFU UsE1LkoPEyCVtrT748ZSw qXfY7CMLmxhOo D9CtXMVimTroSkR8a0M0J z6MhHwneFDvAJ3dQaMsEC i0F1InGmi3GAYcjOojSP9 dhRNcFWwcEx8u nXbdbNccEK2sSTVdeirdx 462KpWae5nnXRLimSXjTZ jeWCK1O72ho7X5USYfTNG fTCB7iPG3lC6v bGlnbjogbGVmdDsgdmVyd NliWQpzAHobA254OHTsbM izKcOTVlx4D7RqTyt8GHY loRbvDL5umHOr NVngEi4ksYwojAakVE7zB KRdqwnxy275LcDsa8plTL NcyOFvZIpiIZQ4Q47jc3S 1UIWdBLBsKFL9 sQC0lV9yqHfyqcqntAHer DsgdmVydGljYWwtYWxpZ2 57KTTtbFxpFu1VTcl2W0T oIfe7XLKzfLiu UL7gpXGoVVbeJz2avGqkl YqmQN2gTZRftweff925Iq Qzi9ouXBXlePCgSYhqEDJ 8J80gh5M0ZXBs KQAvPOM8uMG4iP1exRcve jogbGVmdDsgdmVydGljYW srNAsnM620TXFrhRpbCsU heWVyOjwvdGQ+ VA21kh15E8AwBtiyLzg3S GNbVAN5mIS3hN7vFZUhLR wgc9N7yAL0X2AscxDuxg5 cg2yoTNJxYEyy Y29 (more content not included)... [facility] Outside Recordson 01-08-2025 Outside Records [id number] .[id number] [facility] Consent Forms - Physicianon 01-01-2025 Consent Forms - Physician [id number] .[id number] [facility] US Venous Insufficiency Bila ton 01-01-2025 US Venous Insufficiency Bilat EXAMINATION: US Venous Insufficiency Bilat HISTORY: Varicose veins of bilateral lower extremities with pain COMPARISON: No relevant comparison available. TECHNIQUE: Duplex imaging of the lower extremity/extremities to assess the deep and superficial venous system for the presence of deep or superficial venous incompetence and to document the location and severity of disease. The study includes evaluation of the great saphenous vein (GSV), anterior accessory saphenous vein (AASV), and small saphenous vein (SSV). Patient scanned in reverse Trendelenburg And standing positions. FINDINGS: RIGHT LOWER EXTREMITY: GSV: Diam (mm) Reflux Time (sec) Saph fem jctn: 7.90 mm 1.30 s Proximal thigh: 6 mm 1 s Mid thigh: 4.30 mm 1 s Distal thigh: 4 mm 1.10 s Prox calf: 3.30 mm Mid calf: 2 mm SSV: Saph pop jctn: 3.40 mm Prox calf: 2.40 mm Mid calf: 1.90 mm AASV: Prox thigh: 3.70 mm Mid thigh: 3 mm Distal thigh: 4 mm 1.10 s Thrombi: No acute or chronic thrombus visualized. Compressibility:Shaniqua l. Flow: No deep vein reflux Perforators: No incompetent perforating veins Tech note: Incompetent varicose veins measuring up to 4.2 mm with one second proximal LEFT LOWER EXTREMITY: GSV: Diam (mm) Reflux Time (sec) Saph fem jctn: 8.40 mm 2.40 s Proximal thigh: 6 mm 0.80 s Mid thigh: 4.20 mm 1 s Distal thigh: 4.90 mm 0.80 s Prox calf: 3.30 mm 0.80 s Mid calf: 1.90 mm SSV: Saph pop jctn: 4.30 mm 0.90 s Prox calf: Mid calf: 3.10 mm AASV: Not present Thrombi: No acute or chronic thrombus visualized. Compressibility:Shaniqua l. Flow: No deep vein reflux Perforators: 3.7 mm with 0.6 seconds of reflux Tech note: Incompetent varicose veins measuring up to 3.7 mm with 1.3 seconds of reflux CONCLUSION: Mild right and toxb-nj-gqpqfpvd left great saphenous vein venous insufficiency with dilatation and saphenofemoral junction reflux Mild right anterior accessory saphenous vein and left small saphenous vein venous insufficiency without dilatation Bilateral incompetent varicose veins Final Dictated by: Rancho Jcaobson MD Dictated DT/TM: 01/01/25 10:21 Signed (Electronic Signature): Rancho Jacobson MD 01/01/25 10:23 a Technologist: [facility] FPG ECG *CARDIOLOGY ONLY*on 12-24-2024 FPG ECG *CARDIOLOGY ONLY* [facility] [place] [address] [place] [address] Electrocardiograph Report Signed Patient: Parisa Hendricks#: [id number] : 1950 Acct:[id number] Age/Sex: 74 / F ADM Date: 12/24/24 Loc: EKGCARDIO Room: Type: [facility] Attending Dr: Juan Owusu MD Ordering Provider: Juan Owusu MD Date of Service: 12/24/2409/18/1442 ECG/FPG ECG *CARDIOLOGY ONLY*: R00.1 - Bradycardia, unspecified Copies to: Test Reason : Blood Pressure : */* mmHG Vent. Rate : 76 BPM Atrial Rate : 76 BPM P-R Int : 172 ms QRS Dur : 86 ms QT Int : 394 ms P-R-T Axes : 49 -60 23 degrees QTcB Int : 443 ms Sinus rhythm with sinus arrhythmia with occasional premature ventricular complexes Left axis deviation Pulmonary disease pattern Abnormal ECG Confirmed by Sergio Loo ([id number]) on 12/26/2024 4:00:37 PM Referred By: Electronically Signed By: Sergio Loo Transcribed By: MUS Signed By Sergio Loo MD 12/26/24 1600 Normal [facility] MA Mamm Screen w/CAD if perf and 3D Bilon 12-18-2024 MA Mamm Screen w/CAD if perf and 3D Jb Exam Date/Time: 12/14/2024 15:24 EDT Reason for Exam: Z12.31 Report IMPRESSION: BIRADS 2 BENIGN FINDINGS, NORMAL INTERVAL FOLLOW-UP Follow-up: 12 MONTH RECALL Category B - There are scattered areas of fibroglandular density. Vascular calcifications: Present. EXAM: MA Mamm Screen w/CAD if perf and 3D Jb DATE: 12/14/2024 3:12 PM CLINICAL HISTORY: Z12.31. COMPARISONS: 11/22/2023, 11/12/2022, and 09/28/2021. TECHNIQUE: Routine full-field digital mammograms and 3D breast tomosynthesis were obtained of both breasts. FINDINGS: There are no developing densities, suspicious microcalcifications, or areas of architectural distortion identified on the current study. No significant changes are identified from the prior studies, given differences in technique and positioning. Stable asymmetries. Dense Breast: No. CAD analysis was performed and used in the interpretation. Board Certified Radiologists. Accredited by the ACR and FDA. MAMMOGRAPHY IS VERY IMPORTANT TO YOUR HEALTH. THE CURRENT [employer] GUIDELINES RECOMMENDS ANNUAL MAMMOGRAPHY BEGINNING AT AGE 40. THIS FACILITY UTILIZES A REMINDER SYSTEM TO ENSURE ALL PATIENTS RECEIVE REMINDER NOTIFICATIONS AT THE APPROPRIATE TIME BASED ON THE RECOMMENDATIONS OF THIS EXAM. Report Ordering Provider: ELHAM LOZANO FINAL REPORT Dictated: 12/18/2024 3:26 pm Broderick Vanegas MD Signed (Electronic Signature): 12/18/2024 3:26 pm Signed by: Broderick Vanegas MD Transcribed by: PENNY Technologist: ESMER Assessment: BI-RADS Category 2-Benign finding Recommendation: Normal interval follow-up Normal [facility] Patient Handouton 12-12-2024 Patient Handout Cardiovascular Varicose Veins Varicose veins are veins that have become enlarged, bulged, and twisted. They most often appear in the legs. What are the causes? This condition is caused by damage to the valves in the vein. These valves help blood return to your heart. When they are damaged and they stop working properly, blood may flow backward and back up in the veins near the skin, causing the veins to get larger and appear twisted. The condition can result from any issue that causes blood to back up, like , prolonged standing, or obesity. What increases the risk? The following factors may make you more likely to develop this condition: ? Being on your feet a lot. ? Being . ? Being overweight. ? Smoking. ? Having had a previous deep vein thrombosis or having a thrombotic disorder. ? Aging. The risk increases with age. ? Having a condition called Klippel?Trenaunay syndrome. What are the signs or symptoms? Symptoms of this condition include: ? Bulging, twisted, and bluish veins. ? A feeling of heaviness in your legs. This may be worse at the end of the day. ? Leg pain. This may be worse at the end of the day. ? Swelling in the leg. ? Changes in skin color over the veins. Swelling or pain in the legs can limit your activities. Your symptoms may get worse when you sit or stand for long periods of time. How is this diagnosed? This condition may be diagnosed based on: ? Your symptoms, family history, activity levels, and lifestyle. ? A physical exam. You may also have tests, including an ultrasound or X-ray. How is this treated? Treatment for this condition may involve: ? Avoiding sitting or standing in one position for long periods of time. ? Wearing compression stockings. These stockings help to prevent blood clots and reduce swelling in the legs. ? Raising (elevating) the legs when resting. ? Losing weight. ? Exercising regularly. If you have persistent symptoms or want to improve the way your varicose veins look, you may choose to have a procedure to close the varicose veins off or to remove them. Nonsurgical treatments to close off the veins include: ? Sclerotherapy. In this treatment, a solution is injected into a vein to close it off. ? Laser treatment. The vein is heated with a laser to close it off. ? Radiofrequency vein ablation. An electrical current produced by radio waves is used to close off the vein. Surgical treatments to remove the veins include: ? Phlebectomy. In this procedure, the veins are removed through small incisions made over the veins. ? Vein ligation and stripping. In this procedure, incisions are made over the veins. The veins are then removed after being tied (ligated) with stitches (sutures). Follow these instructions at home: Medicines ? Take jmbp-fhk-rcmdyuv and prescription medicines only as told by your health care provider. ? If you were prescribed an antibiotic medicine, use it as told by your health care provider. Do not stop using the antibiotic even if you start to feel better. Activity ? Walk as much as possible. Walking increases blood flow. This helps blood return to the heart and takes pressure off your veins. ? Do not stand or sit in one position for a long period of time. ? Do not sit with your legs crossed. ? Avoid sitting for a long time without moving. Get up to take short walks every 1?2 hours. This is important to improve blood flow and breathing. Ask for help if you feel weak or unsteady. ? Return to your normal activities as told by your health care provider. Ask your health care provider what activities are safe for you. ? Do exercises as told by your health care provider. General instructions ? Follow any diet instructions given to you by your health care provider. ? Elevate your legs at night to above the level of your heart. ? If you get a cut in the skin over the varicose vein and the vein bleeds: ? Lie down with your leg raised. ? Apply firm pressure to the cut with a clean cloth until the bleeding stops. ? Place a bandage (dressing) on the cut. ? Drink enough fluid to keep your urine pale yellow. ? Do not use any products that contain nicotine or tobacco. These products include cigarettes, chewing tobacco, and vaping devices, such as e-cigarettes. If you need help quitting, ask your health care provider. ? Wear compression stockings as told by your health care provider. Do not wear other kinds of tight clothing around your legs, pelvis, or waist. ? Keep all follow-up visits. This is important. Contact a health care provider if: ? The skin around your varicose veins starts to break down. ? You have more pain, redness, tenderness, or hard swelling over a vein. ? You are uncomfortable because of pain. ? You get a cut in the skin over a varicose vein and it will not stop bleeding. Get help right away if: ? You have chest pain. ? You have trouble breathing. ? Y (more content not included)... Normal [facility] Basophils Auto (Bld) [#/Vol] on 11-05-2024 Basophils (Bld) [#/Vol] Automated basophil count 0.0-0.1 [facility] Basophils/100 WBC Auto (Bld) on 11-05-2024 Basophils/100 WBC (Bld) Automated basophil % 0.2-2.0 [facility] Eosinophils/100 WBC Auto (Bl d)on 11-05-2024 Eosinophils/100 WBC (Bld) Automated eosinophil % Low 0.9-7.0 [facility] Erythrocyte distribution wid th Auto (RBC) [Ratio]on 11-05-2024 Erythrocyte distribution width (RBC) [Ratio] Erythrocyte distribution width [Ratio] by Automated count 11.0-15.0 [facility] Estimated glomerular filtrat ion rate (GFR) non- Americanon 11-05-2024 GFR/1.73 sq M.predicted among non-blacks MDRD (S/P/Bld) [Vol rate/Area] Estimated glomerular filtration rate (GFR) non- Low >=60 mL/min/1.73m 2 [facility] Hematocrit Auto (Bld) [Volum e fraction]on 11-05-2024 Hematocrit (Bld) [Volume fraction] Hematocrit [Volume Fraction] of Blood by Automated count 36.0-48.0 [facility] Hemoglobin [Mass/volume] in Bloodon 11-05-2024 Hemoglobin (Bld) [Mass/Vol] Hemoglobin [Mass/volume] in Blood 12.0-16.0 [facility] Laboratory - Chemistry and C hemistry - challengeon 11-05-2024 Calcium [Mass/Vol] 9.4 mg/dL 8.5-10.1 [facility] Chloride [Moles/Vol] 102 mmol/L 98-107 [facility] CO2 [Moles/Vol] 27.7 mmol/L 21.0-32.0 [facility] Creatinine [Mass/Vol] 0.97 mg/dL 0.55-1.02 [facility] Free T4 [Mass/Vol] 1.39 ng/dL 0.76-1.46 [facility] GFR/1.73 sq M.predicted MDRD (S/P/Bld) [Vol rate/Area] mL/min/{1.73_m2} >=60 mL/min/1.73m 2 [facility] Glucose [Mass/Vol] 105 mg/dL 74-106 [facility] Potassium [Moles/Vol] 3.8 mmol/L 3.5-5.1 [facility] Sodium [Moles/Vol] 138 mmol/L 136-145 [facility] TSH Qn 3.475 m[IU]/L 0.358-3.740 [facility] Urea nitrogen [Mass/Vol] 18.0 mg/dL 7.0-18.0 [facility] Urea nitrogen/Creatinine [Mass ratio] 18.6 mg/mg [facility] Laboratory - Hematology and Cell countson 11-05-2024 Immature granulocytes/100 WBC (Bld) 0.2 % 0.0-0.5 [facility] Leukocytes [#/volume] correc kitty for nucleated erythrocytes in Blood by Automated counon 11-05-2024 WBC corrected for nucl RBC Auto (Bld) [#/Vol] Leukocytes [#/volume] corrected for nucleated erythrocytes in Blood by Automated coun 4.0-11.0 [facility] Lymphocytes Auto (Bld) [#/Vo l]on 11-05-2024 Lymphocytes (Bld) [#/Vol] Lymphocytes [#/volume] in Blood by Automated count Low 1.2-3.8 [facility] Lymphocytes/100 WBC Auto (Bl d)on 11-05-2024 Lymphocytes/100 WBC (Bld) Lymphocytes/100 leukocytes in Blood by Automated count Low 20.5-60.0 [facility] MCH Auto (RBC) [Entitic mass ]on 11-05-2024 MCH (RBC) [Entitic mass] MCH [Entitic mass] by Automated count 26.7-34.0 [facility] MCHC Auto (RBC) [Mass/Vol]on 11-05-2024 MCHC (RBC) [Mass/Vol] MCHC [Mass/volume] by Automated count 29.9-35.2 [facility] MCV Auto (RBC) [Entitic vol] on 11-05-2024 MCV (RBC) [Entitic vol] MCV [Entitic volume] by Automated count 81.0-99.0 [facility] Monocytes Auto (Bld) [#/Vol] on 11-05-2024 Monocytes (Bld) [#/Vol] Automated blood monocyte count 0.3-0.8 [facility] Monocytes/100 WBC Auto (Bld) on 11-05-2024 Monocytes/100 WBC (Bld) Automated monocyte % 1.7-12.0 [facility] Neutrophils Auto (Bld) [#/Vo l]on 11-05-2024 Neutrophils (Bld) [#/Vol] Neutrophils [#/volume] in Blood by Automated count High 1.4-6.5 [facility] Neutrophils/100 WBC Auto (Bl d)on 11-05-2024 Neutrophils/100 WBC (Bld) Automated neutrophil % High 43.0-75.0 [facility] No Panel Informationon 11-05 Eosinophils # (Auto) 0.0 10 3/uL 0.0-0.7 [facility] Immature Granulocyte # (Auto) 0.02 10 3/uL 0.00-0.03 [facility] Platelet mean volume Auto (B ld) [Entitic vol]on 11-05-2024 Platelet mean volume (Bld) [Entitic vol] Platelet mean volume [Entitic volume] in Blood by Automated count 9.5-13.5 [facility] Platelets Auto (Bld) [#/Vol] on 11-05-2024 Platelets (Bld) [#/Vol] Platelets [#/volume] in Blood by Automated count 150-450 [facility] RBC Auto (Bld) [#/Vol]on RBC (Bld) [#/Vol] Erythrocytes [#/volume] in Blood by Automated count 4.20-5.40 [facility] Serum or plasma anion gap de terminationon 11-05-2024 Anion gap [Moles/Vol] Serum or plasma anion gap determination [facility] X-ray reportOrdered By: Jef Duncan on 09-20-2024 Study report [facility] [facility] [address] [place] [address] XRay Report Signed Patient: Parisa Hendricks MR#: [id number] : 1950 Acct:[id number] Age/Sex: 73 / F ADM Date: 5 Loc: [facility] [place] Room: Type: [facility] Attending Dr: Americo Santiago II, MD Copies to: Americo Santiago MD~ Ordering Provider: Americo Santiago MD Date of Service: 09/20/24 XR/XR knee LT 4V*: M25.562 - Pain in left knee XR knee LT 4V* 09/20/2024 2:02 PM SIGNS AND SYMPTOMS: Left knee pain PROTOCOL: Frontal, lateral, oblique, and sunrise views of the left knee COMPARISON: 06/05/2020 FINDINGS: There is narrowing of the weightbearing and patella for joint spaces greatest along the medial weightbearing joint space. There is tricompartmental spurring. There is a small joint effusion. No soft tissue swelling. No fracture. 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 Similar to the prior study. There is a small joint effusion. Impression dictated by: Jef Duncan M.D.09/20/2024 2:48 PM Dictation Location: RADIO-PC-24 Transcribed By: EVELIN 09/20/241447 Dictated By: Jef Duncan II, MD 09/20/241446 Signed By: 09/20/241447 [facility] Work Phone: Study report [facility] [address] [place] [address] XRay Report Signed Patient: Parisa Hendricks MR#: [id number] : 1950 Acct:[id number] Age/Sex: 73 / F ADM Date: 5 Loc: [facility] [place] Room: Type: [facility] Attending Dr: Americo Santiago II, MD Copies to: Americo Santiago MD~ Ordering Provider: Americo Santiago MD Date of Service: 09/20/24 XR/XR pelvis 1-2V: M25.562 - Pain in left knee XR pelvis 1-2V 09/20/2024 2:02 PM SIGNS AND SYMPTOMS: Left knee pain PROTOCOL: Frontal radiograph the pelvis COMPARISON: None FINDINGS: The bony ring of the pelvis is intact. Degenerative changes are noted in the lumbar spine and sacral iliac joints. Mild narrowing of the joint spaces of thehips. XR/XR pelvis 1-2V IMPRESSION: No fracture or dislocation. Mild degenerative changes are noted as above. Impression dictated by: Jef Duncan M.D.09/20/2024 2:46 PM Dictation Location: RADIO-PC-24 Transcribed By: EVELIN 09/20/241445 Dictated By: Jef Duncan II, MD 09/20/241445 Signed By: 09/20/241445 [facility] Work Phone: XR knee LT 4V*on 09-20-2024 XR knee LT 4V* [facility] [place] [address] XRay Report Signed Patient: Parisa Hendricks MR#: [id number] : 1950 Acct:[id number] Age/Sex: 73 / F ADM Date: 09/20/24 Loc: [facility] Room: Type: REG CLI Attending Dr: Americo Santiago II, MD Copies to: Americo Santiago MD Ordering Provider: Americo Santiago MD Date of Service: 09/20/24 XR/XR knee LT 4V*: M25.562 - Pain in left knee XR knee LT 4V* 09/20/2024 2:02 PM SIGNS AND SYMPTOMS: Left knee pain PROTOCOL: Frontal, lateral, oblique, and sunrise views of the left knee COMPARISON: 06/05/2020 FINDINGS: There is narrowing of the weightbearing and patella for joint spaces greatest along the medial weightbearing joint space. There is tricompartmental spurring. There is a small joint effusion. No soft tissue swelling. No fracture. 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 Similar to the prior study. There is a small joint effusion. Impression dictated by: Jef Duncan M.D.09/20/2024 2:48 PM Dictation Location: [place] [address] Transcribed By: [facility] 09/20/24 1448 Dictated By: Jef Duncan II, MD 09/20/24 1447 Signed By: 09/20/24 1448 Normal [facility] XR pelvis 1-2Von 09-20-2024 XR pelvis 1-2V [facility] [address] [place] [address] XRay Report Signed Patient: Parisa Hendricks MR#: [id number] : 1950 Acct:[id number] Age/Sex: 73 / F ADM Date: 09/20/24 Loc: [facility] Room: Type: REG CLI Attending Dr: Americo Santiago II, MD Copies to: Americo Santiago MD Ordering Provider: Americo Santiago MD Date of Service: 09/20/24 XR/XR pelvis 1-2V: M25.562 - Pain in left knee XR pelvis 1-2V 09/20/2024 2:02 PM SIGNS AND SYMPTOMS: Left knee pain PROTOCOL: Frontal radiograph the pelvis COMPARISON: None FINDINGS: The bony ring of the pelvis is intact. Degenerative changes are noted in the lumbar spine and sacral iliac joints. Mild narrowing of the joint spaces of the hips. XR/XR pelvis 1-2V IMPRESSION: No fracture or dislocation. Mild degenerative changes are noted as above. Impression dictated by: Jef Duncan M.D.09/20/2024 2:46 PM Dictation Location: [place] [address] Transcribed By: EVELIN 09/20/24 1446 Dictated By: Jef Duncan II, MD 09/20/24 1446 Signed By: 09/20/24 1446 Normal [facility] CBC AUTO DIFFon 03-10-2022 BASO # 0.0 103/ul Normal 0.0-0.1 [facility] Comment on above: Performed By: #### C BC #### [facility] [address] [place] [address] Dr. Di Alonso Basophils/100 WBC (Bld) 0.6 % Normal 0.2-2.0 [facility] Comment on above: Performed By: #### C BC #### [facility] [address] [place] [address] [address] Di Alonso EO # 0.1 103/ul Normal 0.0-0.7 [facility] Comment on above: Performed By: #### C BC #### [facility] [address] [address] [address] Di Alonso Eosinophils/100 WBC (Bld) 2.4 % Normal 0.9-7.0 [facility] Comment on above: Performed By: #### C BC #### [facility] [address] [address] [address] Di Alonso Erythrocyte distribution width (RBC) [Ratio] 13.6 % Normal 11.0-15.0 [facility] Comment on above: Performed By: #### C BC #### [facility] [address] [place] [address] Dr. Di Alonso Hematocrit (Bld) [Volume fraction] 36.7 % Normal 36.0-48.0 [facility] Comment on above: Performed By: #### C BC #### [facility] [address] [place] [address] Dr. Di Alonso Hemoglobin (Bld) [Mass/Vol] 12.2 g/dL Normal 12.0-16.0 [facility] Comment on above: Performed By: #### C BC #### [facility] [address] [place] [address] Dr. Di Alonso IG # 0.01 10e3/ul Normal 0.00-0.03 [facility] Comment on above: Performed By: #### C BC #### [facility] [address] [place] [address] Dr. Di Alonso IG % 0.2 % Normal 0.0-0.5 [facility] Comment on above: Performed By: #### C BC #### [facility] [address] [place] [address] Dr. Di Alonso LYMPH # 1.0 103/ul Critically low 1.2-3.8 [facility] Comment on above: Performed By: #### C BC #### [facility] [address] [place] [address] Dr. Di Alonso Lymphocytes/100 WBC (Bld) 19.0 % Critically low 20.5-60.0 [facility] Comment on above: Performed By: #### C BC #### [facility] [address] [place] [address] Dr. Di Alonso MANUAL DIFF REQ NO Normal [facility] Comment on above: Performed By: #### C BC #### [facility] [address] [place] [address] Dr. Di Alonso MCH (RBC) [Entitic mass] 28.9 pg Normal 26.7-34.0 [facility] Comment on above: Performed By: #### C BC #### [facility] [address] [place] [address] Dr. Di Alonso MCHC (RBC) [Mass/Vol] 33.2 g/dL Normal 29.9-35.2 [facility] Comment on above: Performed By: #### C BC #### [facility] [address] [address] [address] Di Alonso MCV (RBC) [Entitic vol] 87.0 fL Normal 81.0-99.0 [facility] Comment on above: Performed By: #### C BC #### [facility] [address] [address] [address] Di Alonso MONO # 0.5 103/ul Normal 0.3-0.8 [facility] Comment on above: Performed By: #### C BC #### [facility] [address] [place] [address] Dr. Di Alonso Monocytes/100 WBC (Bld) 8.7 % Normal 1.7-12.0 [facility] Comment on above: Performed By: #### C BC #### [facility] [address] [place] [address] Dr. Di Alonso NEUT # 3.8 103/ul Normal 1.4-6.5 [facility] Comment on above: Performed By: #### C BC #### [facility] [address] [place] [address] Dr. Di Alonso Neutrophils/100 WBC (Bld) 69.1 % Normal 43.0-75.0 [facility] Comment on above: Performed By: #### C BC #### [facility] [address] [place] [address] Dr. Di Alonso Platelet mean volume (Bld) [Entitic vol] 10.6 fL Normal 9.5-13.5 [facility] Comment on above: Performed By: #### C BC #### [facility] [address] [place] [address] Dr. Di Alonso PLT 229 103/ul Normal 150-450 [facility] Comment on above: Performed By: #### C BC #### [facility] [address] [place] [address] Dr. Di Alonso RBC 4.22 106/ul Normal 4.20-5.40 [facility] Comment on above: Performed By: #### C BC #### [facility] [address] [place], [place] [address] Dr. Di Alonso WBC 5.4 103/ul Normal 4.0-11.0 [facility] Comment on above: Performed By: #### C BC #### [facility] [address] [place] [address] Dr. Di Alonso FREE T4on 03-10-2022 Free T4 [Mass/Vol] 1.29 ng/dL Normal 0.76-1.[address] [facility] Comment on above: Performed By: #### F T4 #### [facility] [address] [place] [address] Dr. Di Alonso LIPID PROFILEon 03-10-2022 CHOL-HDL RATIO NORM SEE BELOW Normal [facility] Comment on above: Result Comment: 3.3 - 4.4 LOW RISK 4.4 - 7.1 AVERAGE RISK 7.1 - 11.0 MODERATE RISK >11.0 HIGH RISK Performed By: #### B MP, LIPID, TSH #### [facility] [address] [place] [address] Dr. Di Alonso Cholesterol [Mass/Vol] 181 mg/dL Normal <=200 [facility] Comment on above: Performed By: #### B MP, LIPID, TSH #### [facility] [address] [place] [address] Dr. Di Alonso Cholesterol in HDL [Mass/Vol] 65 mg/dL Critically high 40-60 [facility] Comment on above: Performed By: #### B MP, LIPID, TSH #### [facility] [address] [place] [address] Dr. Di Alonso Cholesterol in LDL [Mass/Vol] 103.6 mg/dL Normal [facility] Comment on above: Performed By: #### B MP, LIPID, TSH #### [facility] [address] [place] [address] Dr. Di Alonso Cholesterol.total/Ch olesterol in HDL [Mass ratio] 2.8 {ratio} Normal [facility] Comment on above: Performed By: #### B MP, LIPID, TSH #### [facility] [address] [place] [address] Dr. Di Alonso HDL NORMAL > or = 60 mg/dl - LO W CARDIOVASCULAR RISK <40 mg/dl - HIGH CARDIOVASCULAR RISK Normal [facility] Comment on above: Performed By: #### B MP, LIPID, TSH #### [facility] [address] [address] [address] Di Alonso LDL CALC NORMAL SEE BELOW Normal [facility] Comment on above: Result Comment: <100 mg/dl OPTIMAL 100 - 129 mg/dl NEAR OR ABOVE OPTIMAL 130 - 159 mg/dl BORDERLINE HIGH 160 - 189 mg/dl HIGH >190 mg/dl VERY HIGH Performed By: #### B MP, LIPID, TSH #### [facility] [address] [address] [address] Di Alonso Triglyceride [Mass/Vol] 62 mg/dL Normal <=150 [facility] Comment on above: Performed By: #### B MP, LIPID, TSH #### [facility] [address] [address] [address] Di Alonso VLDL CALC 12.4 mg/dL Normal [facility] Comment on above: Performed By: #### B MP, LIPID, TSH #### [facility] [address] [address] [address] Di Alonso PROF CHEM 8 (BAS METB)on Anion gap [Moles/Vol] 13.5 mmol/L Normal [facility] Comment on above: Performed By: #### B MP, LIPID, TSH #### [facility] [address] [address] [address] Di Alonso Calcium [Mass/Vol] 8.9 mg/dL Normal 8.5-10.[address] [facility] Comment on above: Performed By: #### B MP, LIPID, TSH #### [facility] [address] [address] [address] Di Alonso Chloride [Moles/Vol] 100 mmol/L Normal 98-107 [facility] Comment on above: Performed By: #### B MP, LIPID, TSH #### [facility] [address] [address] [address] Di Alonso CO2 [Moles/Vol] 28.2 mmol/L Normal 21.0-32.0 [facility] Comment on above: Performed By: #### B MP, LIPID, TSH #### [facility] [address] [address] [address] Di Alonso Creatinine [Mass/Vol] 0.83 mg/dL Normal 0.55-1.02 [facility] Comment on above: Performed By: #### B MP, LIPID, TSH #### [facility] [address] [address] [address] Di Alonso EGFR-AF SOMALI >60 Normal >=60 [facility] Comment on above: Performed By: #### B MP, LIPID, TSH #### [facility] [address] [address] [address] Di Alonso EGFR-NON AF SOMALI >60 Normal >=60 [facility] Comment on above: Performed By: #### B MP, LIPID, TSH #### [facility] [address] [address] [address] Di Alonso Glucose [Mass/Vol] 91 mg/dL Normal 74-[address] [facility] Comment on above: Performed By: #### B MP, LIPID, TSH #### [facility] [address] [address] [address] Di Alonso Potassium [Moles/Vol] 3.7 mmol/L Normal 3.5-5.1 [facility] Comment on above: Performed By: #### B MP, LIPID, TSH #### [facility] [address] [address] [address] Di Alonso Sodium [Moles/Vol] 138 mmol/L Normal 136-145 [facility] Comment on above: Performed By: #### B MP, LIPID, TSH #### [facility] [address] [place] [address] Dr. Di Alonso Urea nitrogen [Mass/Vol] 23.0 mg/dL Critically high 7.0-18.0 [facility] Comment on above: Performed By: #### B MP, LIPID, TSH #### [facility] [address] [place] [address] Dr. Di Alonso Urea nitrogen/Creatinine [Mass ratio] 27.7 mg/mg Normal [facility] Comment on above: Performed By: #### B MP, LIPID, TSH #### [facility] [address] [place], [place] [address] Dr. Di Alonso TSHon 03-10-2022 TSH 3.108 uIU/mL Normal 0.358-3.740 [facility] Comment on above: Performed By: #### B MP, LIPID, TSH #### [facility] [address] [place], [place] [address] Dr. Di Alonso COVID-19 Positive/Negativeon 10-30-2020 COVID-19 Positive/Negative Positive Negative [facility] Comment on above: Critical valueresult calledat 1552 on 10/30/20Reference: NegativeTesting for SARS-CoV-2 by RT-PCRThis test was developed and its performance characteristics determined by [employer]) and validated at the [facility]. This test has not been FDA cleared or approved. This test has been authorized by FDA under an Emergency Use Authorization (EUA). This test has been validated in accordance with the FDA's Guidance Document (Policy for Diagnostics Testing in Laboratories Certified to Perform High Complexity Testing under CLIA prior to Emergency Use Authorization for Coronavirus Disease-2019 during the Public Health Emergency) issued on October 25, 2019. This test is only authorized for the duration of time the declaration that circumstances exist justifying the authorization of the emergency use of in vitro diagnostic tests for detection of SARS-CoV-2 virus and/or diagnosis of COVID-19 infection under section 564(b)(1) of the Act, 21 U.S.C. 360bbb-3(b)(1), unless the authorization is terminated or revoked sooner. Otheron 10-30-2020 Coronavirus 2019 PCR Interp N/A [facility] Automated basophil %on 10-16 Basophils/100 WBC (Bld) 0.8 % [facility] Automated basophil counton 0 10-16-2020 Basophils (Bld) [#/Vol] 0.0 10*3/uL 0.0-0.2 [facility] Automated blood lymphocyte c ount (number/volume)on 10-16-2020 Lymphocytes (Bld) [#/Vol] 0.7 10*3/uL 1.00-4.8 [facility] Automated blood lymphocyte c ount as percentage of total leukocyteson 10-16-2020 Lymphocytes/100 WBC (Bld) 12.6 % [facility] Automated blood monocyte cou nton 10-16-2020 Monocytes (Bld) [#/Vol] 0.5 10*3/uL 0.0-0.8 [facility] Automated blood platelet cou nt (count/volume)on 10-16-2020 Platelets (Bld) [#/Vol] 244 10*3/uL 150-450 [facility] Automated blood platelet debra n volume measurementon 10-16-2020 Platelet mean volume (Bld) [Entitic vol] 9.5 fL 6.3-10.7 [facility] Automated eosinophil %on Eosinophils/100 WBC (Bld) 0.9 % [facility] Automated eosinophil counton 10-16-2020 Eosinophils (Bld) [#/Vol] 0.1 10*3/uL 0.0-0.45 [facility] Automated erythrocyte distri bution width ratioon 10-16-2020 Erythrocyte distribution width (RBC) [Ratio] 13.5 % 11.9-15.3 [facility] Automated erythrocyte mean c orpuscular hemoglobin (mass per erythrocyte)on 10-16-2020 MCH (RBC) [Entitic mass] 29.4 pg 24.7-34.3 [facility] Automated erythrocyte mean c orpuscular hemoglobin concentration measurement (mass/volon 10-16-2020 MCHC (RBC) [Mass/Vol] 34.3 g/dL 32.0-35.0 [facility] Automated erythrocyte mean c orpuscular volumeon 10-16-2020 MCV (RBC) [Entitic vol] 85.8 fL 80-100 [facility] Automated erythrocytes count in urine sediment (number/area)on 10-16-2020 RBC Auto (Urine sed) [#/Area] 3-4 [HPF] [facility] Automated leukocytes count i n urine sediment (number/area)on 10-16-2020 WBC Auto (Urine sed) [#/Area] 10-19 [HPF] [facility] Automated monocyte %on 10-16 Monocytes/100 WBC (Bld) 8.3 % [facility] Automated neutrophil %on Neutrophils/100 WBC (Bld) 77.4 % [facility] Automated urine color determ inationon 10-16-2020 Color (U) Dark yellow Yellow [facility] Blood erythrocytes automated count (number/volume)on 10-16-2020 RBC (Bld) [#/Vol] 4.36 10*6/uL 3.60-5.00 [facility] Blood hemoglobin measurement (mass/volume)on 10-16-2020 Hemoglobin (Bld) [Mass/Vol] 12.8 g/dL 11.8-15.4 [facility] Blood leukocytes automated c ount (number/volume)on 10-16-2020 WBC (Bld) [#/Vol] 5.9 10*3/uL 3.8-11.6 [facility] Blood neutrophil count by au tomated method (number/volume)on 10-16-2020 Neutrophils (Bld) [#/Vol] 4.5 10*3/uL 1.8-7.7 [facility] Estimated glomerular filtrat ion rate (GFR) non- Americanon 10-16-2020 GFR/1.73 sq M predicted among non-blacks MDRD (S/P/Bld) [Vol rate/Area] > 60 mL/Min [facility] Hematocrit [Volume Fraction] of Blood by Automated counton 10-16-2020 Hematocrit (Bld) [Volume fraction] 37.4 % 34.0-46.4 [facility] Otheron 10-16-2020 GFR/1.73 sq M.predicted MDRD (S/P/Bld) [Vol rate/Area] > 60 mL/Min [facility] Comment on above: GFR estimated refere nce range: According to KDOQI guidelines, <60 ml/min/1.73m2 is sufficient to diagnose a patient with chronic kidney disease. Nucleated RBC/100 WBC (Bld) [Ratio] 0.1 % 0-0.5 [facility] Creatinine Clearance (Chem N/A [facility] Serum or plasma calcium evelyn urement (mass/volume)on 10-16-2020 Calcium [Mass/Vol] 9.3 mg/dL 8.2-10.2 [facility] Serum or plasma chloride debra surement (moles/volume)on 10-16-2020 Chloride [Moles/Vol] 102 mmol/L 95-114 [facility] Serum or plasma creatinine m easurement with calculation of estimated glomerular filtron 10-16-2020 Creatinine [Mass/Vol] 0.89 mg/dL 0.44-1.03 [facility] Serum or plasma glucose evelyn urement (mass/volume)on 10-16-2020 Glucose [Mass/Vol] 101 mg/dL 70-100 [facility] Comment on above: ADA recommended refe rence rangeRandom Glucose Reference Range is dependent on time and content of last meal. Glucose of more than 200 mg/dL in a nonstressed, ambulatory subject supports the diagnosis of Diabetes Mellitus. Serum or plasma potassium me asurement (moles/volume)on 10-16-2020 Potassium [Moles/Vol] 3.8 mmol/L 3.5-5.1 [facility] Serum or plasma sodium measu rement (moles/volume)on 10-16-2020 Sodium [Moles/Vol] 139 mmol/L 136-146 [facility] Serum or plasma total carbon dioxide measurement (moles/volume)on 10-16-2020 CO2 [Moles/Vol] 27.0 mmol/L 22.0-30.0 [facility] Serum or plasma urea nitroge n measurement (mass/volume)on 10-16-2020 Urea nitrogen [Mass/Vol] 25 mg/dL 9-23 [facility] Specific gravity of Urine by Automated test stripon 10-16-2020 Specific gravity (U) [Rel density] 1.024 1.001-1.030 [facility] Squamous epithelial cells de tection in urine sediment by light microscopyon 10-16-2020 Epithelial cells.squamous LM Ql (Urine sed) 3-4 [HPF] [facility] Urinalysison 10-16-2020 Hyaline casts LM Ql (Urine sed) 0-8 [LPF] [facility] Urine bacteria detection by automated methodon 10-16-2020 Bacteria Auto Ql (U) None seen None Seen [facility] Urine clarity by refractomet ry automatedon 10-16-2020 Clarity Refractometry automated (U) Cloudy Clear [facility] Urine culture routineon 09-23 Bacteria identified Cx Nom (U) 2 Days [facility] Urine glucose measurement by automated test strip (mass/volume)on 10-16-2020 Glucose Auto test strip (U) [Mass/Vol] Normal mg/dL Normal [facility] Urine hemoglobin detection b y automated test stripon 10-16-2020 Hemoglobin Auto test strip Ql (U) Negative Negative [facility] Urine ketones measurement by automated test strip (mass/volume)on 10-16-2020 Ketones (U) [Mass/Vol] Trace Negative [facility] Urine leukocyte esterase det ection by automated test stripon 10-16-2020 Leukocyte esterase Auto test strip Ql (U) 3+ Negative [facility] Urine nitrite detection by t est stripon 10-16-2020 Nitrite Ql (U) Negative Negative [facility] Urine pH measurement by auto mated test stripon 10-16-2020 pH (U) 5.0 [pH] 5.0-9.0 [facility] Urine protein measurement by automated test strip (mass/volume)on 10-16-2020 Protein (U) [Mass/Vol] Negative Negative [facility] Urine total bilirubin detect ion by test stripon 10-16-2020 Bilirubin Ql (U) Negative Negative [facility] Urine urobilinogen measureme nt by automated test strip (mass/volume)on 10-16-2020 Urobilinogen (U) [Mass/Vol] Normal mg/dL Normal [facility] Vital Signs Date Time Vital Sign Value Performing Clinician Facility 03-11-2025 13:38-0400 Body height 160.02 cm Elham Lozano MD Work Phone: [facility] [facility] 03-11-2025 13:38-0400 Body mass index (BMI) [Ratio] 26.4 kg/m2 Elham Loznao MD Work Phone: [facility] 03-11-2025 13:38-0400 Body weight 67.58 kg Elham Lozano MD Work Phone: [facility] 03-11-2025 13:38-0400 Diastolic blood pressure 70 mm[Hg] Elham Lozano MD Work Phone: [facility] 03-11-2025 13:38-0400 Heart rate 70 /min Elham Lozano MD Work Phone: [facility] 03-11-2025 13:38-0400 Respiratory rate 18 /min Elham Lozano MD Work Phone: [facility] 03-11-2025 13:38-0400 SaO2% (BldA) [Mass fraction] 99 % Elham Lozano MD Work Phone: [facility] 03-11-2025 13:38-0400 Systolic blood pressure 122 mm[Hg] Elham Lozano MD Work Phone: [facility] 12-24-2024 15:05-0400 Body height 160.02 cm Elham Lozano MD Work Phone: [facility] 12-24-2024 15:05-0400 Body mass index (BMI) [Ratio] 26.5 kg/m2 Elham Lozano MD Work Phone: [facility] 12-24-2024 15:05-0400 Body weight 68.03 kg Elham Lozano MD Work Phone: [facility] 12-24-2024 15:05-0400 Diastolic blood pressure 80 mm[Hg] Elham Lozano MD Work Phone: [facility] 12-24-2024 15:05-0400 Heart rate 88 /min Elham Lozano MD Work Phone: [facility] 12-24-2024 15:05-0400 Respiratory rate 18 /min Elham Lozano MD Work Phone: [facility] 12-24-2024 15:05-0400 SaO2% (BldA) [Mass fraction] 97 % Elham Lozano MD Work Phone: [facility] 12-24-2024 15:05-0400 Systolic blood pressure 134 mm[Hg] Elham Lozano MD Work Phone: [facility] 12-10-2024 13:52-0400 Body height 160.02 cm Elham Lozano MD Work Phone: [facility] 12-10-2024 13:52-0400 Body mass index (BMI) [Ratio] 26.7 kg/m2 Elham Lozano MD Work Phone: [facility] 12-10-2024 13:52-0400 Body temperature 98.2 [degF] Elham Lozano MD Work Phone: [facility] 12-10-2024 13:52-0400 Body weight 68.57 kg Elham Lozano MD Work Phone: [facility] 12-10-2024 13:52-0400 Diastolic blood pressure 89 mm[Hg] Elham Lozano MD Work Phone: [facility] 12-10-2024 13:52-0400 Heart rate 78 /min Elham Lozano MD Work Phone: [facility] 12-10-2024 13:52-0400 Respiratory rate 12 /min Elham Lozano MD Work Phone: [facility] 12-10-2024 13:52-0400 SaO2% (BldA) [Mass fraction] 97 % Elham Lozano MD Work Phone: [facility] 12-10-2024 13:52-0400 Systolic blood pressure 138 mm[Hg] Elham Lozano MD Work Phone: [facility] 11-12-2024 10:57-0400 Body height 160.02 cm Elham Lozano MD Work Phone: [facility] 11-12-2024 10:57-0400 Body mass index (BMI) [Ratio] 27.1 kg/m2 Elham Lozano MD Work Phone: [facility] 11-12-2024 10:57-0400 Body weight 69.45 kg Elham Lozano MD Work Phone: [facility] 11-12-2024 10:57-0400 Diastolic blood pressure 75 mm[Hg] Elham Lozano MD Work Phone: [facility] 11-12-2024 10:57-0400 Heart rate 43 /min Elham Lozano MD Work Phone: [facility] 11-12-2024 10:57-0400 Respiratory rate 12 /min Elham Lozano MD Work Phone: [facility] 11-12-2024 10:57-0400 SaO2% (BldA) [Mass fraction] 99 % Elham Lozano MD Work Phone: [facility] 11-12-2024 10:57-0400 Systolic blood pressure 134 mm[Hg] Elham Lozano MD Work Phone: [facility] 11-05-2024 11:41-0400 Body height 160.02 cm Elham Lozano MD Work Phone: [facility] 11-05-2024 11:41-0400 Body mass index (BMI) [Ratio] 26.9 kg/m2 Elham Lozano MD Work Phone: [facility] 11-05-2024 11:41-0400 Body weight 68.94 kg Elham Lozano MD Work Phone: [facility] 11-05-2024 11:41-0400 Diastolic blood pressure 77 mm[Hg] Elham Lozano MD Work Phone: [facility] 11-05-2024 11:41-0400 Heart rate 46 /min Elham Lozano MD Work Phone: [facility] 11-05-2024 11:41-0400 Systolic blood pressure 146 mm[Hg] Elham Lozano MD Work Phone: [facility] 09-20-2024 13:59-0500 Body height 160.02 cm Elham Lozano MD Work Phone: [facility] 09-20-2024 13:59-0500 Body mass index (BMI) [Ratio] 27.3 kg/m2 Elham Lozano MD Work Phone: [facility] 09-20-2024 13:59-0500 Body weight 69.85 kg Elham Lozano MD Work Phone: [facility] 03-16-2024 12:02-0400 Body height 154.94 cm [facility] 03-16-2024 12:02-0400 Body mass index (BMI) [Ratio] 29 kg/m2 [facility] 03-16-2024 12:02-0400 Body temperature 97.8 [degF] [facility] 03-16-2024 12:02-0400 Body weight 69.85 kg [facility] 03-16-2024 12:02-0400 Diastolic blood pressure 79 mm[Hg] [facility] 03-16-2024 12:02-0400 Heart rate 65 /min [facility] 03-16-2024 12:02-0400 Systolic blood pressure 144 mm[Hg] [facility] 10-27-2023 09:52-0400 Body height 156.21 cm [facility] 10-27-2023 09:52-0400 Body mass index (BMI) [Ratio] 28.8 kg/m2 [facility] 10-27-2023 09:52-0400 Body weight 70.36 kg [facility] 10-27-2023 09:52-0400 Diastolic blood pressure 77 mm[Hg] [facility] 10-27-2023 09:52-0400 Heart rate 76 /min [facility] 10-27-2023 09:52-0400 Systolic blood pressure 147 mm[Hg] [facility] 06-29-2023 09:00-0500 Body height 156.21 cm Elham Lozano Other [email or web address] Other 06-29-2023 09:00-0500 Body mass index (BMI) [Ratio] 28.81 kg/m2 Elham Lozano Other [email or web address] Other 06-29-2023 09:00-0500 Body weight 70.31 kg Elham Lozano Other [email or web address] Other 06-29-2023 09:00-0500 Diastolic blood pressure 76 mm[Hg] Elham Lozano Other [email or web address] Other 06-29-2023 09:00-0500 Systolic blood pressure 126 mm[Hg] Elham Lozano Other [email or web address] Other 06-23-2023 09:00-0500 Body height 156.21 cm Elham Lozano Other [email or web address] Other 06-23-2023 09:00-0500 Body mass index (BMI) [Ratio] 29.07 kg/m2 Elham Lozano Other [email or web address] Other 06-23-2023 09:00-0500 Body weight 70.94 kg Elham Lozano Other [email or web address] Other 06-23-2023 09:00-0500 Diastolic blood pressure 82 mm[Hg] Elham Lozano Other [email or web address] Other 06-23-2023 09:00-0500 Systolic blood pressure 144 mm[Hg] Elham Lozano Other [email or web address] Other 10-25-2022 15:30-0400 Body height 156.21 cm Elham Lozano Other [email or web address] Other 10-25-2022 15:30-0400 Body mass index (BMI) [Ratio] 28.81 kg/m2 Elham Lozano Other [email or web address] Other 10-25-2022 15:30-0400 Body weight 70.31 kg Elham Lozano Other [email or web address] Other 10-25-2022 15:30-0400 Diastolic blood pressure 78 mm[Hg] Elham Lozano Other [email or web address] Other 10-25-2022 15:30-0400 SaO2% (BldA) [Mass fraction] 99 % Elham Lozano Other [email or web address] Other 10-25-2022 15:30-0400 Systolic blood pressure 112 mm[Hg] Elham Lozano Other [email or web address] Other 05-26-2021 12:00-0400 Body height 162.56 cm Ivett Lazcano Other [email or web address] Other 05-26-2021 12:00-0400 Body mass index (BMI) [Ratio] 25.74 kg/m2 Ivett Lazcano Other [email or web address] Other 05-26-2021 12:00-0400 Body weight 68.04 kg Ivett Lazcano Other [employer] Other 05-26-2021 12:00-0400 Respiratory rate 18 /min Ivett Lazcano Other [email or web address] Other 05-26-2021 12:00-0400 SaO2% (BldA) [Mass fraction] 98 % Ivett Lazcano Other [email or web address] Other Encounters Encounter Date Encounter Type Care Provider Facility Start: 03-11-2025 End: 03-11-2025 ambulatory Elham Lozano MD Work Phone: [facility] Work Phone: Start: 03-11-2025 End: 03-11-2025 Patient encounter procedure Juan Amaya MD -[facility] Work Phone: Start: 03-04-2025 End: 03-04-2025 Patient encounter procedure Juan Amaya MD -Electrodiagnostics Work Phone: Start: 03-04-2025 End: 03-04-2025 ambulatory Elham Lozano MD Work Phone: [facility] Work Phone: Start: 02-18-2025 End: 02-18-2025 Patient encounter procedure Juan Amaya MD -CT Scan [facility] [place] Work Phone: Start: 02-18-2025 End: 02-18-2025 ambulatory Elham Lozano MD Work Phone: [facility] Work Phone: Start: 01-01-2025 End: 01-01-2025 ambulatory Rancho Jacobson Facility:[facility] Start: 12-24-2024 End: 12-24-2024 ambulatory Elham Lozano MD Work Phone: [facility] Work Phone: Start: 12-24-2024 End: 12-24-2024 Patient encounter procedure Elham Lozano MD Work Phone: [facility] Work Phone: Start: 12-14-2024 End: 12-14-2024 ambulatory ELHAM LOZANO Facility:[facility] Start: 12-10-2024 End: 12-10-2024 Patient encounter procedure Elham Lozano MD Work Phone: [facility] Work Phone: Start: 11-12-2024 End: 11-12-2024 ambulatory Elham Lozano MD Work Phone: [facility] Work Phone: Start: 11-12-2024 End: 11-12-2024 Patient encounter procedure Elham Lozano MD Work Phone: [facility] Work Phone: Start: 11-05-2024 End: 11-05-2024 ambulatory Elham Lozano MD Work Phone: [facility] Work Phone: Start: 11-05-2024 End: 11-05-2024 Patient encounter procedure Elham Lozano MD Work Phone: [facility] Work Phone: Start: 09-20-2024 End: 09-20-2024 ambulatory Elham Lozaon MD Work Phone: [facility] Work Phone: Start: 09-20-2024 End: 09-20-2024 Patient encounter procedure Elham Lozano MD Work Phone: [facility] Work Phone: Start: 09-20-2024 End: 09-20-2024 Patient encounter procedure Elham Lozano MD Work Phone: [facility] Start: 09-20-2024 End: 09-20-2024 ambulatory Elham Loznao MD Work Phone: [facility] Work Phone: Start: 07-10-2024 End: 07-10-2024 Patient encounter procedure Elham Lozano MD Work Phone: [facility] Work Phone: Start: 03-16-2024 End: 03-16-2024 ambulatory [facility] Work Phone: Start: 03-16-2024 End: 03-16-2024 Patient encounter procedure [facility] Work Phone: Start: 11-22-2023 End: 11-22-2023 Patient encounter procedure ELHAM LOZANO [facility] Start: 10-27-2023 End: 10-27-2023 Departed Referred MD Elham Lozano Work Phone: [facility] [place] Work Phone: Start: 10-27-2023 End: 10-27-2023 ambulatory MD Elham Lozano Work Phone: [facility] Work Phone: Start: 10-27-2023 End: 10-27-2023 Patient encounter procedure [facility] Work Phone: Start: 06-29-2023 End: 06-29-2023 ambulatory Elham Lozano Other [email or web address] Other Start: 06-29-2023 Office outpatient vi sit 15 minutes Elham Lozano [facility] Start: 06-23-2023 End: 06-23-2023 ambulatory Elham Lozano Other [email or web address] Other Start: 06-23-2023 Office outpatient vi sit 15 minutes Elham Lozano [facility] Start: 04-13-2023 End: 04-13-2023 ambulatory Elham Lozano Other [email or web address] Other Start: 04-13-2023 Telephone encounter Elham Lozano [facility] Start: 02-18-2023 End: 02-18-2023 ambulatory Elham Lozano Other [email or web address] Other Start: 02-18-2023 Telephone encounter Elham Lozano [facility] Start: 11-12-2022 End: 11-12-2022 Patient encounter procedure ELHAM LOZANO [facility] Start: 10-27-2022 End: 10-27-2022 ambulatory Elham Lozano Other [email or web address] Other Start: 10-27-2022 Telephone encounter Elham Lozano [facility] Start: 10-25-2022 End: 10-25-2022 Departed Referred MD Elham Lozano Work Phone: [facility] [place] Work Phone: Start: 10-25-2022 End: 10-25-2022 ambulatory MD Elham Lozano Work Phone: [email or web address] Other Start: 10-25-2022 Periodic preventive med est patient 65yrs& older Elham Lozano [facility] Start: 07-12-2022 Adult health examination Elham Lozano Other [email or web address] Other Start: 07-12-2022 Pre-procedure evaluation check Elham Lozano Other [email or web address] Other Start: 03-10-2022 End: 03-11-[address] ELHAM LOZANO Facility: Start: 05-26-2021 End: 05-26-2021 ambulatory Ivett Lazcano Other [email or web address] Other Start: 05-26-2021 Office outpatient vi sit 15 minutes Ivett Lazcano [facility] Start: 10-30-2020 End: 10-30-2020 Patient encounter procedure Carlos A Ordonez -Pre-Surgical Testing Start: 10-22-2020 End: 10-22-2020 Discharged Recurring Carlos A Ordonez -Physical Therapy [facility] [place] Start: 10-22-2020 End: 10-22-2020 Patient encounter procedure Carlos A Ordonez -[facility] Start: 10-16-2020 End: 10-16-2020 Patient encounter procedure Carlos A Ordonez -Pre-Surgical Testing Procedures Date Procedure Procedure Detail Performing Clinician Start: 02-18-[address] Elham lewis MD Work Phone: Start: 09-20-2024 Plain radiography of pelvis Elham Lozano MD Work Phone: Start: 09-20-2024 X-ray of left knee, four views Elham Lozano MD Work Phone: Start: 10-22-2020 Plain X-ray of right femur Carlos A Ordonez Start: 10-16-2020 Bacteria identified Cx Nom (U) Carlos A Ordonez Start: 10-16-2020 Urine culture Carlos A armstrong Depression screening Elham Lozano Other Plan of Treatment Date Care Activity Detail Author Start: 12-24-2024 [facility] Start: 11-12-2024 Patient referral [facility] Work Phone: Start: 10-27-2023 [facility] Start: 10-25-2022 [facility] Cardiovascular stress testing [facility] CT Heart [facility] DXA Skeletal system. axial Views for bone density [facility] EKG [address] [facility] Holter monitor study [facility] Human papilloma viru s 16+18+31+33+35+39+45+51+52+56+58+ 59+66+68 DNA [Presence] in Cervix by Probe with signal amplification [facility] Human papilloma viru s 16+18+31+33+35+39+45+51+52+56+58+ 59+66+68 DNA [Presence] in Cervix by Probe with signal amplification [facility] Magnesium [Mass/volu me] in Red Blood Cells [facility] MG Breast - bilateral Screening [facility] Patient referral [facility] Work Phone: US Heart Tr[facility]hor[facility] Immunizations Immunization Date Immunization Notes Care Provider Fa cili 07-10-2024 influenza, high dose seasonal, preservative-free Elham Lozano MD Work Phone: [facility] 06-29-2023 influenza virus vaccine, unspecified formulation [facility] 06-29-2023 influenza, high dose seasonal, preservative-free Elham Lozano Other [facility] [employer] Other 07-09-2022 COVID-19 Pfizer (Pediatric) Elham Lozano Other [facility] 06-30-2022 influenza virus vaccine, split virus (incl. purified surface antigen) Elham Lozano Other [email or web address] Other 06-30-2022 influenza virus vaccine, unspecified formulation [facility] 06-25-2021 influenza virus vaccine, split virus (incl. purified surface antigen) Elham Lozano Other [email or web address] Other 06-25-2021 influenza virus vaccine, unspecified formulation [facility] 05-30-2021 COVID-19 Vaccine Pfi zer - Documentation Purposes Only Elham Lozano Other [facility] 10-22-2020 COVID-19 mRNA Comirnaty (Pfizer) MD Elham Lozano Work Phone: [facility] 10-01-2020 COVID-19 mRNA Comirnatem (Pfizer) MD Elham Lozano Work Phone: [facility] 05-16-2020 influenza virus vaccine, split virus (incl. purified surface antigen) Ehlam Lozano Other [email or web address] Other 05-16-2020 influenza virus vaccine, unspecified formulation [facility] Payers Date Payer Category Payer Medicare [id number] 1958 Private Health Insurance [id number] 1950 Unknown [id number] 1950 Unknown [id number] 1950 Unknown [id number] Private Health Insurance [id number] Self-pay Self Pay [id number] Unknown [id number] Social History Date Type Detail Facility Start: 10-16-2020 End: 03-11-2025 Tobacco smoking status NHIS Never smoked tobacco (finding) [facility] Start: 1950 Sex Assigned At Female F [facility] Sex Assigned At [facility] Tobacco smoking status No Smokin g Status Entered [facility] Start: 09-20-2024 End: 12-25-2024 Sex Female (finding) [facility] Medical Equipment Procedure Code Equipment Code Equipment Origin al Text Equipment Identifier Dates Arthroplasty, knee, total, minimally invasive Orthopaedic cement, non-medicated [id number] FDA Start: 11-17-2020 Arthroplasty, knee, total, minimally invasive Orthopaedic cement, non-medicated [id number] FDA Start: 11-17-2020 Arthroplasty, knee, total, minimally invasive Polyethylene patella prosthesis [id number] FDA Start: 11-17-2020 Arthroplasty, knee, total, minimally invasive Tibial insert [id number] FDA Start: 11-17-2020 Arthroplasty, knee, total, minimally invasive Uncoated knee tibia prosthesis, metallic [id number] FDA Start: 11-17-2020 Arthroplasty, knee, total, minimally invasive Uncoated knee femur prosthesis, metallic ()[id number] FDA Start: 11-17-2020 Goals Date Patient Goal Desired Activity /State Clinical Notes 11-17-2020 to 02-18-2025 Note Date & Type Note Facility 02-18-2025 Radiology Diagnostic study note [facility] [place] [address] [place] [address] CT Scan Report Signed Patient: Parisa Hendricks MR#: [id number] [id number] : 1950 Acct:[id number] Age/Sex: 74 / F ADM Date: 5 Loc: CT Room: Type: [facility] Attending Dr: Juan Owusu MD Copies to: Juan Owusu MD~ Ordering Provider: Juan Owusu MD Date of Service: 02/18/25 CT/CT heart calcium score wo: R06.00 - Dyspnea, unspecified CT heart calcium score w/o contrast REASON FOR EXAM: Palpitations, bradycardia, history of thyroid cancer and melanoma, hypertension TECHNIQUE: Prospective gated imaging of the heart were obtained for calcium evaluation of the coronary arteries. Agatston score was calculated. The CT exam was performed using one or more the following dose reduction techniques: Automated exposure control, adjustment of the MA and/or Kv according to patient size, or use of the iterative reconstruction technique. COMPARISON:None FINDINGS: LEFT MAIN: 0 LEFT ANTERIOR DESCENDIN CIRCUMFLEX: 0 RIGHT CORONARY ARTERY: 0 TOTAL AGATSTON CALCIUM SCORE: 0 [address] score [address] the patient at the 0th percentile. EXTRACARDIAC STRUCTURES: Mediastinal and hilar partially calcified lymph nodes are present. No pericardial effusion. Visualized lungs demonstrate no acute process. There is a 5 mm calcified granuloma in the lingula. Limited images ofthe upper abdomen demonstrate no acute findings. There is a 1.5 cm hypoattenuating structure in the right hepatic lobe presumably representing a cyst. Calcified granulomas are noted in the spleen. CT/CT heart calcium score wo IMPRESSION: No significant extracardiac CT findings. CALCIUM SCORE INTERPRETATION (0) No identifiable atherosclerotic plaque. Very low cardiovascular disease risk. Less then 5% chance of presence of coronary artery disease. (1-99) RIsk is mildly increased. Treatment recommendation - moderate intensitystatin. (100-299) Risk is moderately increased. Treatment recommendation - moderate tohigh intensity statin plus ASA 81mg. (>300) Risk is moderately to severely increased. Treatment recommendation - high intensity statin plus ASA 81mg. Source: September 2017 - Coronary artery calcium data and reporting system. An expert consensus document of the Society of Cardiovascular Computed Tomography) CALCIUM SCORING OVERVIEW: Coronary calcium is a marker for plaque in a blood vessel or atherosclerosis (hardening of the arteries). The presence and amount of calcium detected in thecoronary artery by the CT scan estimates the presence and amount of atherosclerotic plaque. These calcium deposits can appear years before the development of heart disease symptoms such as chest pain and shortness of breath. A calcium score is computed of each of the coronary arteries based upon the volume and density of the calcium deposits. This can be referred to as your calcified plaque burden. It does not correspond directly to the percentage of narrowing in the artery, but does correlate with the severity of the overall coronary atherosclerotic burden. This score is then used to determine the calcium percentile which compares your calcified plaque to that of other asymptomatic men and women of the same age. The calcium score, in combination with the percentile, enables your physician todetermine your risk of developing symptomatic coronary artery disease, and to measure the progression of disease as well as the effectiveness of treatment. A score of zero indicates that there is no calcified plaque burden. This implies that there is no significant coronary artery narrowing and very low likelihood of a cardiac event over at least the next 3 years. It does not absolutely rule out the presence of soft, noncalcified plaque or totally eliminate the possibility of a cardiac event. A score greater than zero indicates at least some coronary artery disease. As the score increases, so does the likelihood of a significant coronary narrowing and the likelihood of a coronary event over the next 3 years. Similarly, the likelihood of a coronary event increases with increasing calcium percentiles. Impression dictated by: Jef Duncan M.D. 02/18/2025 3:51 PM Dictation Location: [place] [address] Transcribed By: EVELIN 02/18/25 891 Dictated By: Jef Duncan II, MD 02/18/25 1542 Signed By: 02/18/25 1551 [facility] Work Phone: 12-24-2024 Evaluation note Diagnosis Onset Date Resolution Bradycardia acute December 24 2:36pm Dyspnea acute December 24, 2024 2:36pm Hypertension acute December 24 2:36pm Palpitations acute December 24 2:36pm [facility] Work Phone: 1(551) 860-326605-19-2025 Evaluation note* Diagnosis Onset Date Resolution Status Admit Date Bradycardia acute December 10 1:49pm Rhinitis, allergic acute December 102024 1:49pm Sinusitis, acute maxillary acute December 10, 2024 1:49pm Bradycardia acute December 24 2:36pm Dyspnea acute December 24, 2024 2:36pm Hypertension acute December 24 2:36pm Palpitations acute December 24 2:36pm [facility] Work Phone: 1(917) 585-973404-14-2025 Evaluation note* Diagnosis Onset Date Resolution Status Admit Date Bradycardia acute November 05, 2 025 11:36am Hypertension acute November 05, 2024 11:36am Thyroid disease acute October 11:36am Localized swelling of right foot inactive November 05, 2024 11:36am Bradycardia acute November 12, 025 10:52am Medicare annual wellness vis it, subsequent acute November 12, 2024 10:52am Varicose veins of right ankle acute November 12, 2024 10:52am Localized swelling of right foot inactive November 12, 2024 10:52am Bradycardia acute December 10 1:49pm Rhinitis, allergic acute December 102024 1:49pm Sinusitis, acute maxillary acute December 10, 2024 1:49pm Bradycardia acute December 24 2:36pm Dyspnea acute December 24, 2024 2:36pm Hypertension acute December 24 2:36pm Palpitations acute December 24 2:36pm [facility] Work Phone: 1(304) 848-770902-27-2025 Evaluation note* Diagnosis Onset Date Resolution Status Admit Date Primary osteoarthritis of le ft knee acute September 20, 2 025 1:24pm Bradycardia acute November 05, 2 025 11:36am Hypertension acute November 05, 2024 11:36am Thyroid disease acute October 11:36am [facility] Work Phone: 1(191) 221-714802-27-2025 Evaluation note* Diagnosis Onset Date Resolution Status Admit Date Primary osteoarthritis of le ft knee acute September 20 1:24pm Bradycardia acute November 05 11:36am Hypertension acute November 05, 2024 11:36am Localized swelling of right foot acute November 05, 2024 11:36am Thyroid disease acute October 11:36am Bradycardia acute November 12 10:52am Localized swelling of right foot acute November 12, 2024 10:52am Varicose veins of right ankle acute November 12, 2024 10:52am [facility] Work Phone: 1(674) 670-379612-17-2024 Evaluation note* Diagnosis Onset Date Resolution Status Admit Date Encounter for immunization acute July 10, 2024 11:25am Primary osteoarthritis of le ft knee acute September 20 1:24pm [facility] Work Phone: 1(522) 208-337912-06-2023 Evaluation note* Encounter Date Diagnosis Assessment Notes Treatment Notes Treatment Clinical Notes Jun, 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 She will monitor for symptoms. Denies chest pain or issues. Declines rx or referral to cardio at this time. Jun, Acute contact dermatitis (ICD-10 - L25.9) Improved since previous treatment at 06/23 OV. [email or web address] Other 11-30-2023 Evaluation note* Encounter Date Diagnosis Assessment Notes Treatment Notes Treatment Clinical Notes May, Acute contact dermatitis (ICD-10 - L25.9) No new soaps or detergents. Steroid cream to help with itching and possible reaction to certain types of clothing discussed. May, Irregular heartbeat (ICD-10 - I49.9) Pt agrees to complete EKG today to r/o a fib. [email or web address] Other 04-03-2023 Evaluation note* Encounter Date Diagnosis Assessment Notes Treatment Notes Treatment Clinical Notes Oct, Screening for cervical cancer (ICD-10 - Z12.4) Pap test completed. Oct, Encounter for screening mammogram for malignant neoplasm of breast (ICD-10 - Z12.31) Pt will continue mammograms at [facility]. [email or web address] Other 04-26-2021 History general Narrative - Reported* Type Description Date Medical History thyroid disease Medical History hypertension Surgical History c-sections three Surgical History melanoma excision 2007 Surgical History thyroidectomy 2008 Surgical History right TKA 11/17/20 Hospitalization History see above [facility] Other Evaluation + Plan note No data available for this section [facility] Other Evaluation noteNo assessment information available [facility] Work Phone: Evaluation noteNo InformationNort [employer] Other Evaluation note* Diagnosis Onset Date Resolution Status History of human papilloma virus acute Medicare annual wellness visit, subsequent acute Menopause acute Screening mammogram for breast cancer acute [facility] Work Phone: Evaluation note* Diagnosis Onset Date Resolution Status Family history of colon cancer acute History of human papilloma virus acute Medicare annual wellness visit, subsequent acute Menopause acute Screening mammogram for breast cancer acute [facility] Work Phone: History general Narrative - ReportedNoNew [email or web address] Other Hospital Discharge instructions No data available for this section [facility] Dis[facility] instructionsAmbulatory Orders* Referral to Vascular Surgery Time Frame: 11/12/24, Location: None Selected [facility] Work Phone: Progress note No data available for this section [facility] (narrative)No reason for referral information availablePaul[facility] Work Phone: Advance Directives Advance Directive Response Recorded Date/ Time Advance Directives No May 2:45pm Advance Directive Response Recorded Date/ Time Advance Directives No May 1:45pm Chief Complaint and Reason for Visit Chief Complaint Right Knee Pain Chief Complaint Right Knee Pain pre op R TKA Chief Complaint Right Knee Pain M17.11 pre op R TKA Right Knee Pain Chief Complaint wellness / PAP Reason for Visit History of human pap illoma virus Medicare annual wellness visit, subsequent Menopause Screening mammogram for breast cancer Chief Complaint wellness / PAP E12.4 Reason for Visit Family history of co miriam cancer History of human papilloma virus Medicare annual wellness visit, subsequent Menopause Screening mammogram for breast cancer Chief Complaint fatigue, sore throat , covid - Chief Complaint Admit Date flu shot July 10, 2024 11:25am M25.562 - Pain in left knee August 8:25am NEW LT KNEE PAIN NX September 20, 2024 1:24pm Reason for Visit Admit Date Encounter for immunization June 11:25am Primary osteoarthritis of left knee [facility] 2024 1:24pm Chief Complaint Admit Date M25.562 - Pain in left knee August 8:25am NEW LT KNEE PAIN NX September 20, 2024 1:24pm Swollen Lump on Foot November 05, 2024 11 :36am Reason for Visit Admit Date Primary osteoarthritis of left knee [facility] 2024 1:24pm Bradycardia November 05, 2024 11: 36am Hypertension November 05, 2024 11: 36am Thyroid disease November 05, 2024 11: 36am Chief Complaint Admit Date M25.562 - Pain in left knee August 8:25am NEW LT KNEE PAIN NX September 20, 2024 1:24pm Swollen Lump on Foot November 05, 2024 11 :36am wellness November 12, 2024 10: 52am Reason for Visit Admit Date Primary osteoarthritis of left knee [facility] 2024 1:24pm Bradycardia November 05, 2024 11: 36am Hypertension November 05, 2024 11: 36am Localized swelling of right foot October 232024 11:36am Thyroid disease November 05, 2024 11: 36am Bradycardia November 12, 2024 10: 52am Localized swelling of right foot October 242024 10:52am Varicose veins of right ankle October 10:52am Chief Complaint Admit Date Swollen Lump on Foot November 05, 2024 11 :36am wellness November 12, 2024 10: 52am cold symptoms 1x week December 10, 2024 1:4 9pm Bradycardia, unspecified December 24, 2024 2:36pm Reason for Visit Admit Date Bradycardia November 05, 2024 11: 36am Hypertension November 05, 2024 11: 36am Thyroid disease November 05, 2024 11: 36am Localized swelling of right foot October 232024 11:36am Bradycardia November 12, 2024 10: 52am Medicare annual wellness visit, lisa nt November 12, 2024 10:52am Varicose veins of right ankle October 10:52am Localized swelling of right foot October 242024 10:52am Bradycardia December 10, 2024 1:49p m Rhinitis, allergic December 10, 2024 1:49p m Sinusitis, acute maxillary December 10 1:49pm Bradycardia December 24, 2024 2:36p m Dyspnea December 24, 2024 2:36p m Hypertension December 24, 2024 2:36p m Palpitations December 24, 2024 2:36p m Chief Complaint Admit Date cold symptoms 1x week December 10, 2024 1:4 9pm Bradycardia, unspecified December 24, 2024 2:36pm [email or web address] December 24, 2024 2:43p m [email or web address] February 18, 2025 8:37 am Reason for Visit Admit Date Bradycardia December 10, 2024 1:49p m Rhinitis, allergic December 10, 2024 1:49p m Sinusitis, acute maxillary December 10 1:49pm Bradycardia December 24, 2024 2:36p m Dyspnea December 24, 2024 2:36p m Hypertension December 24, 2024 2:36p m Palpitations December 24, 2024 2:36p m Chief Complaint Admit Date cold symptoms 1x week December 10, 2024 1:4 9pm Bradycardia, unspecified December 24, 2024 2:36pm R00.1 December 24, 2024 2:43p m [email or web address] February 18, 2025 8:37 am [email or web address] March 04, 2025 12 :33pm Chief Complaint Admit Date Bradycardia, unspecified December 24, 2024 2:36pm R00.1 December 24, 2024 2:43p m [email or web address] February 18, 2025 8:37 am [email or web address] March 04, 2025 12 :33pm 6 week f/u March 11, 2025 1: 30pm Reason for Visit Admit Date Bradycardia December 24, 2024 2:36p m Dyspnea December 24, 2024 2:36p m Hypertension December 24, 2024 2:36p m Palpitations December 24, 2024 2:36p m Assessments No Assessments Information AvailableNo Assessments Information AvailableNo Assessments Information AvailableNo Assessments Information Available Summary Purpose Family History Relationship Condition Age at Onset Recorded Date/T manjit father Hypertension Unknown Unknown Diabetes mellitus Unknown Not Specified Unknown Relationship Condition Age at Onset Recorded Date/T manjit father Hypertension Unknown Unknown Diabetes mellitus Unknown mother Unknown Relationship Condition Age at Onset Recorded Date/T manjit father Hypertension Unknown Unknown Diabetes mellitus Unknown Myocardial infarction Unknown mother Unknown Additional Source Comments INFORMATION SOURCE (unrecogn ized section and content) DATE CREATED AUTHOR 03/17/2022 [facility] DATE CREATED AUTHOR AUTHOR'S ORGANIZ ATION 12/26/2024 [facility] DATE CREATED AUTHOR AUTHOR'S ORGANIZ ATION 01/10/2025 [facility] DATE CREATED AUTHOR AUTHOR'S ORGANIZ ATION 03/11/2025 [facility] REASON FOR VISIT (unrecogniz ed section and content) PAP ExammessagerefillsRefill Rash on LegsResults Discussion/FLU Shot Care Teams (unrecognized sec tion and content) Team Status: Active Member Role Status Dates Elham Lozano MD Primary Care Provider Active Team Status: Inactive Member Role Status Dates Elham Lozano MD Primary Care Provider, Attending Jluis lindsay Active Team Status: Inactive Member Role Status Dates Elham Lozano MD Primary Care Provide r, Attending Provider Active Start: October 27, 2023 End: October 27, 2023 Team Status: Inactive Member Role Status Dates Elham Lozano MD Primary Care Provide r, Attending Provider Active Start: March 16, 2024 End: March 16, 2024 Team Status: Inactive Member Role Status Dates Elham Lozano MD Primary Care Provide r, Attending Provider Active Start: July 10, 2024 End: July 10, 2024 Team Status: Active Member Role Status Dates Elham Lozano MD Primary Care Provider Active Start: September 20, 2024 Americo Santiago II, MD Attending Provider Active Start: September 20, 2024 Team Status: Inactive Member Role Status Dates Elham Lozano MD Primary Care Provider Active Start: September 20, 2024 End: September 20, 2024 Americo aSntiago II, MD Attending Provider Active Start: September 20, 2024 End: September 20, 2024 Team Status: Inactive Member Role Status Dates Elham Lozano MD Primary Care Provide r, Attending Provider Active Start: November 05, 2024 End: November 05, 2024 Team Status: Inactive Member Role Status Dates Elham Lozano MD Primary Care Provide r, Attending Provider Active Start: November 12, 2024 End: November 12, 2024 Team Status: Inactive Member Role Status Dates Elham Lozano MD Primary Care Provide r, Attending Provider Active Start: December 10, 2024 End: December 10, 2024 Team Status: Inactive Member Role Status Dates Elham Lozano MD Primary Care Provide r, Referring Provider Active Start: December 24, 2024 End: December 24, 2024 Juan Owusu MD Attending Provider Active Star t: December 24, 2024 End: December 24, 2024 Team Status: Active Member Role Status Dates Elham Lozano MD Primary Care Provider Active Start: December 24, 2024 Juan wOusu MD Attending Provider Active Star t: December 24, 2024 Team Status: Inactive Member Role Status Dates Elham Lozano MD Primary Care Provider Active Start: December 24, 2024 End: December 24, 2024 Juan Owusu MD Attending Provider Active Star t: December 24, 2024 End: December 24, 2024 Team Status: Inactive Member Role Status Dates Elham Lozano MD Primary Care Provider Active Start: December 10, 2024 End: December 10, 2024 Elham Lozano MD Attending Provider Active St art: December 10, 2024 End: December 10, 2024 Team Status: Inactive Member Role Status Dates Elham Lozano MD Primary Care Provider Active Start: December 24, 2024 End: December 24, 2024 Elham Lozano MD Referring Provider Active St art: December 24, 2024 End: December 24, 2024 Juan Owusu MD Attending Provider Active Star t: December 24, 2024 End: December 24, 2024 Team Status: Inactive Member Role Status Dates Elham Lozano MD Primary Care Provider Active Start: February 18, 2025 End: February 18, 2025 Juan Owusu MD Attending Provider Active Star t: February 18, 2025 End: February 18, 2025 Team Status: Inactive Member Role Status Dates Elham Lozano MD Primary Care Provider Active Start: March 04, 2025 End: March 04, 2025 Juan Owusu MD Attending Provider Active Star t: March 04, 2025 End: March 04, 2025 Team Status: Inactive Member Role Status Dates Elham Lozano MD Primary Care Provider Active Start: March 11, 2025 End: March 11, 2025 Juan Owusu MD Attending Provider Active Star t: March 11, 2025 End: March 11, 2025 Goals (unrecognized section and content) Goals may be documented in a n alternate section FOR RECORDS PERTAINING TO PATIENTS WHO ARE OR HAVE BEEN ENROLLED IN A CHEMICAL DEPENDENCY/SUBSTANCEABUSE PROGRAM, SOME INFORMATION MAY BE OMITTED. This clinical summary was aggregated from multiple sources. Caution should be exercised in using it in the provision of clinical care. This summary normalizes information from multiple sources, and as a consequence, information in this document may materially change the coding, format and clinical context of patient data. In addition, data may be omitted in some cases. CLINICAL DECISIONS SHOULD BE BASED ON THE PRIMARY CLINICAL RECORDS. [facility] [employer] provides no warranty or guarantee of the accuracy or completeness of information in this document.
[2025-03-18 09:49] LABS: Anion Gap 13.6; Blood Urea Nitrogen 22.0 mg/dL (7.0-18.0); Calcium 9.0 mg/dL (8.5-10.1); Carbon Dioxide 28.8 mmol/L (21.0-32.0); Chloride 104 mmol/L (98-107); Estimated GFR (African America >60 (>=60 mL/min/1.73m^2); Estimated GFR (Non-African Ame >60 (>=60 mL/min/1.73m^2); Glucose 86 mg/dL (74-106); Magnesium 2.0 mg/dL (1.8-2.4); NT Pro B Type Natriuretic Pept 269.0 pg/mL (<=900.0); Potassium 4.4 mmol/L (3.5-5.1); Sodium 142 mmol/L (136-145)
== END 2025-03-18 08:22 | disposition home or self-care (01) ==
LOC: LAB 08:22
PROVIDERS: PCP Family Medicine; Visit Provider Internal Medicine Cardiovascular Disease
DX: R06.00 Dyspnea, unspecified (principal); R00.2 Palpitations; R00.1 Bradycardia, unspecified; I49.3 Ventricular premature depolarization
CPT/HCPCS: 36415; 80048; 83735; 83880